=== PATIENT | female | born 1990 | race Caucasian/White ===

== ENCOUNTER 2022-04-09 09:18 | Outpatient (CLI) | payer OTHER, SELFPAY ==
--- NOTE | 2022-04-09 09:15 | CRLHL7_ITS ---
For Patients: As a result of the Century Cures Act, medical imaging exams and procedure reports are released immediately into your electronic medical record. You may view this report before your referring provider. If you have questions, please contact your health care provider. INDICATION: RIGHT CYST FELT ON PELVIC EXAM COMPARISON: 08/16/2015 TECHNIQUE: 2D martin scale and color Doppler images were acquired of the pelvis using a transabdominal and transvaginal approach. FINDINGS: Sonographic images demonstrate a normal size and smooth outer contour of the uterus. Uterus measures 7.8 cm in length by 4.3 cm in AP diameter by 5.6 cm in transverse dimension. The myometrium has a normal uniform echotexture. Intrauterine device is located in good position within the endometrial canal. The right ovary measures 3.3 x 1.8 x 2 point cm in size and the left ovary measures 2.8 x 1.1.4 cm. The ovaries demonstrate normal arterial and venous blood flow on color Doppler analysis. There is a circumscribed ovoid area near isoechoic echotexture within the right adnexa measuring 1.6 x 0.9 x 1.2 cm. Incidental small left ovarian cyst is present. IMPRESSION: There is an indeterminate hypoechoic structure adjacent to the right ovary measuring 1.6 x 0.9 x 1.2 cm which may represent a hemorrhagic paraovarian cyst or could represent blood products within a distended right fallopian tube. Recommendations could include pelvic MRI or follow-up ultrasound in 8-10 weeks. Dictated by Eleazar Cardenas MD @ 04/09/2022 11:57:24 AM (Electronically Signed)
== END 2022-04-09 09:19 | disposition home or self-care (01) ==
LOC: US 09:18
PROVIDERS: PCP Family Medicine; Visit Provider Obstetrics & Gynecology
DX: N83.201 Unspecified ovarian cyst, right side (principal)
CPT/HCPCS: 76830; 76856

== ENCOUNTER 2022-06-05 10:22 | Outpatient (CLI) | payer OTHER, SELFPAY ==
--- NOTE | 2022-06-05 10:15 | CRLHL7_ITS ---
For Patients: As a result of the Century Cures Act, medical imaging exams and procedure reports are released immediately into your electronic medical record. You may view this report before your referring provider. If you have questions, please contact your health care provider. INDICATION: Intermittent pelvic pain. Follow-up a right adnexal hypoechoic structure described on a prior ultrasound April 09, 2022. TECHNIQUE: Transabdominal pelvic ultrasound. COMPARISON: April 09, 2022. FINDINGS: Normal uterus with an intrauterine device appropriately positioned. The uterus measures 6.8 x 3.8 x 4.7 cm. The endometrial stripe measures 3 mm. Minimal free fluid in the cul-de-sac likely physiologic. Normal-sized ovaries with the right measuring 3.5 x 3.4 x 2.4 cm and the left measuring 2.7 x 1.7 x 1.7 cm. Simple right ovarian cyst measuring 3.3 x 2.0 x 2.3 cm. There is an adjacent much smaller daughter cyst. Blood flow is documented in the right ovary both arterial and venous. No torsion. Blood flow is documented in the left ovary both arterial and venous. No torsion. No hypoechoic adnexal lesion on the right which was described previously. IMPRESSION: 1. Normal-appearing uterus. Normal intrauterine device. Normal left ovary. No torsion or mass. 2. Normal sized right ovary. Right ovarian cyst measuring up to 3.3 cm with an adjacent much smaller daughter cyst. No right ovarian torsion. 3. A previously suggested hypoechoic structure in the right adnexa April 09, 2022 is not evident today. Dictated by Melecio Faulkner MD @ 06/05/2022 11:47:28 AM (Electronically Signed)
== END 2022-06-05 10:23 | disposition home or self-care (01) ==
LOC: US 10:23
PROVIDERS: PCP Family Medicine; Visit Provider Obstetrics & Gynecology
DX: R10.2 Pelvic and perineal pain (principal)
CPT/HCPCS: 76830; 93976

== ENCOUNTER 2022-12-21 13:48 | Outpatient (CLI) | payer OTHER, SELFPAY ==
--- NOTE | 2022-12-21 14:00 | CRLHL7_ITS ---
For Patients: As a result of the Century Cures Act, medical imaging exams and procedure reports are released immediately into your electronic medical record. You may view this report before your referring provider. If you have questions, please contact your health care provider. Indication: Pain Technique: Noncontrast CT abdomen and pelvis Please note that all CT scans at this facility use dose modulation, iterative reconstruction, and/or weight-based dosing when appropriate to reduce radiation dose to as low as reasonably achievable. Comparison: Ultrasound 06/05/2022 Findings: Calcified lymph node is present adjacent to the distal esophagus. There is a calcified granuloma within the left lower lobe. Lung bases are otherwise clear. A simple cyst is present within the right hepatic lobe measuring 1.4 cm. An additional simple cyst is present within the left hepatic lobe and measures 1.2 cm. The spleen is within normal limits. The adrenal glands are normal. Normal kidneys. No hydronephrosis or stone. Pancreas normal. Gallbladder incompletely distended. No calcified gallstones. Bladder normal. Intrauterine device is located within the uterus. Mild physiologic pelvic free fluid. No adnexal mass. Increased stool within the colon. No small bowel obstruction. The appendix is within normal limits. No adenopathy. No fracture. Impression: Increased stool within the colon consistent with constipation. No mechanical bowel obstruction or inflammatory change. Normal appendix. Trace physiologic free fluid. IUD within the uterus. Incidental simple cysts within the liver. Sequela of granulomatous change within the lung bases. Please note that all CT scans at this facility use dose modulation, iterative reconstruction, and/or weight-based dosing when appropriate to reduce radiation dose to as low as reasonably achievable. Dictated by Eleazar Cardenas MD @ 12/22/2022 9:33:21 AM (Electronically Signed)
== END 2022-12-21 13:49 | disposition home or self-care (01) ==
LOC: CT 13:49
PROVIDERS: PCP Family Medicine; Visit Provider Obstetrics & Gynecology
DX: R10.9 Unspecified abdominal pain (principal); K76.89 Other specified diseases of liver
CPT/HCPCS: 74176

== ENCOUNTER 2022-12-30 16:45 | Outpatient (CLI) | payer OTHER, SELFPAY | END 2022-12-30 16:46 | disposition home or self-care (01) | PROVIDERS: PCP Internal Medicine; Visit Provider Internal Medicine | DX: R10.9 Unspecified abdominal pain (principal) | CPT/HCPCS: 80053; 84443 ==

== ENCOUNTER 2023-11-23 21:35 | Emergency (ER) | payer OTHER, SELFPAY ==
[2023-11-23 21:39] VITALS: BP 112/69; PULSE 61; RESP 16; TEMP 36.9; O2SAT 100; BMI 20.6
--- NOTE | 2023-11-23 21:53 | ED.ABDPAIN ---
HPI - Abdominal Pain General Date Seen: 11/23/23 Chief Complaint: Abdominal Pain Stated Complaint: abdominal pain Time Seen by Provider: 11/23/23 21:44 Source: patient Mode of arrival: ambulatory Limitations: no limitations History of Present Illness HPI narrative: Patient is a 33-year-old female presenting to emergency department for abdominal pain. Abdominal pain started today around noon and has been getting worse. States the pain is a burning sensation that intermittently have a sharp stabbing pain. Pain she states is a 7/10 at this time. Thinks the pain started more in her central abdomen has moved to her bilateral lower abdomen. Denies fevers, chills, weakness, numbness, headache, vision changes, chest pain, shortness of breath, diarrhea, constipation, melena, hematochezia, dysuria, vaginal discharge, vaginal bleeding. Denies having pain like this before. She notes that she started an antibiotic last night for a double ear infection and is currently on amoxicillin. She started the dose last night and had another dose this afternoon and that is when the pain started. This evening she had another does in that acutely made the pain worse causing a come to the emergency department. She stated she had a normal bowel movement this morning. Also states she was able to have a fish filet at about 18:00 but not eat more because she was not having much of an appetite. Has not had any nausea or vomiting. No previous abdominal surgeries. Has had a previous D&C for miscarriage. Related Data Home Medications ?Medication ?Instructions ?Recorded ?Confirmed levonorgestrel 21 mcg/24 hr (up to 1 device intrauterine ONCE 12/07/22 11/22/23 8 years) 52 mg intrauterine device (Mirena) Previous Rx's ?Medication ?Instructions ?Recorded polyethylene glycol 3350 17 4 g PO QDAY Constipation #238 grams 03/23/23 gram/dose oral powder (Miralax) amoxicillin 875 mg tablet 875 mg PO BID 10 days #20 tabs 11/22/23 Allergies Allergy/AdvReac Type Severity Reaction Status Date / Time No Known Drug Allergies Allergy Verified 11/22/23 08:30 Review of Systems Status of ROS Reports: 10 or more systems reviewed and unremarkable except as noted in History and below [facility] Medical History Acute bilateral otitis media ?H66.93 - Otitis media, unspecified, bilateral (ICD-10) Ovarian cyst ?N83.209 - Unspecified ovarian cyst, unspecified side (ICD-10) Constipation ?K59.00 - Constipation, unspecified (ICD-10) Normal spontaneous vaginal delivery ?O80 - Encounter for full-term uncomplicated delivery (ICD-10) Surgical History H/O dilation and curettage ?Z98.890 - Other specified postprocedural states (ICD-10) Family History Other Bleeding disorder Breast cancer Colon cancer High blood pressure Stroke Social History What is your current living situation?: I presently have a place to live Problems where you live: no known problems In the past 12 months, utilities in danger of being shut off: no In past 12 months, lack of transportation kept you from medical appts, meetings, work, or getting things needed for daily living: no In the past 12 mos, have been you worried that your food would run out before you had money to buy more?: never true In the past 12 mos, the food you bought just didn't last and you didn't have money to buy more?: never true Smoking Status: Never smoker How often does anyone, including family, friends and others, physically hurt you: never How often does anyone, including family, friends and others, insult or talk down to you: never How often does anyone, including family, friends and others, threaten you with harm: never How often does anyone, including family, friends and others, scream or curse at you: never Little interest or pleasure in doing things: not at all Feeling down, depressed, or hopeless: not at all Exam Narrative: Exam Narrative: Const: Well-nourished, Well-developed, in moderate distress Eyes: PERRL, no conjunctival injection, and symmetrical lids HENT: Atraumatic external nose and ears. Moist mucous membranes. Neck: Symmetric, trachea midline, No thyromegaly. CVS: RRR, No murmurs or gallops. Peripheral pulses 2+ and equal in all extremities RESP: Unlabored respiratory effort. Clear to auscultation bilaterally. GI: Notable lower abdominal tenderness bilaterally with some mild tenderness in the upper quadrant, Nondistended, No rebound or guarding. MSK:Extremities w/o deformity, Normal Active ROM Skin: Warm, Dry. No rashes or lesions. Neuro: Normal Muscle tone, No focal neurological deficits. Psych: Awake, Alert, & Oriented x3. Appropriate mood and affect. Const: Vital Signs, click to edit/add: Vital Signs - 24 hr 11/23/23 21:39 Temperature 98.4 F Pulse Rate [Left P ulse Oximeter] 61 Respiratory Rate 16 Blood Pressure [Ri ght Upper Arm] 112/69 Pulse Oximetry 100 Oxygen Delivery Me thod Room Air Course Vital Signs Vital signs: Initial Vital Signs Temperature 98.4 F 11/23/23 21:39 Temperature Source Temporal Artery Scan 11/23/23 21:39 Pulse Rate 61 11/23/23 21:39 Pulse Rhythm Regular 11/23/23 21:39 Respiratory Rate 16 11/23/23 21:39 Blood Pressure 112/69 11/23/23 21:39 Blood Pressure Mean 83 11/23/23 21:39 Blood Pressure Position Sitting 11/23/23 21:39 Pulse Oximetry 100 11/23/23 21:39 Oxygen Delivery Method Room Air 11/23/23 21:39 Vital Signs Temperature 98.4 F 11/23/23 21:39 Pulse Rate 61 11/23/23 21:39 Respiratory Rate 16 11/23/23 21:39 Blood Pressure 112/69 11/23/23 21:39 Pulse Oximetry 100 11/23/23 21:39 Oxygen Delivery Method Room Air 11/23/23 21:39 Temperature 98.4 F 11/23/23 21:39 Pulse Rate 61 11/23/23 21:39 Respiratory Rate 16 11/23/23 21:39 Blood Pressure 112/69 11/23/23 21:39 Pulse Oximetry 100 11/23/23 21:39 Oxygen Delivery Method Room Air 11/23/23 21:39 Medications Administered Medications: Discontinued Medications Generic Name Dose Route Start Last Admin Trade Name Freq PRN Reason Stop Dose Admin Lactated Ringer's 1,000 mls @ 1,000 mls/hr 11/23/23 21:52 11/23/23 23:17 Lactated Ringers 1000 Ml IV 11/23/23 22:51 Infused .Q1H ONE Infusion Ketorolac Tromethamine 15 mg 11/23/23 21:52 11/23/23 23:23 Ketorolac 15 Mg/Ml Inj IVP 11/23/23 21:53 15 mg ONCE ONE Administration MDM - Abdominal Pain MDM Narrative Medical decision making narrative: Patient is a 33-year-old female presenting to the emergency department for abdominal pain. Considering the location of the pain I have some concern for appendicitis. With her age less likely be diverticulitis. With no previous abdominal surgeries in [facility] seems very unlikely. Will also do lipase to check for pancreatitis. test ordered a CT scan the abdomen pelvis will be done. Toradol given for pain. CBC returned showing no concerning abnormalities. CMP and lipase showed no concerning abnormalities. Urine appears normal. test is negative. Pain is starting to improve at this time. She states she is comfortable. A my review of the CT scan she appears very constipated. When I asked her about this she states she has been having issues constipation and has seen a primary care provider in the past about it and has been taking daily stool softeners with some improvement over the past several months. CT scan reviewed by myself and the radiologist shows a large colonic stool burden. This could be the cause of her pain. I spoke to her about this and did give her a bowel cleanout regimen to see if that will help. She is agreeable to this plan. No other acute abnormalities seen. Will be discharged at this time with a Toradol prescription to instymeds Lab Data Labs: Lab Results 11/23/23 11/23/23 Range/Units 22:05 23:05 WBC 10.92 (4.50-11.00) K/uL RBC 4.31 (4.00-5.20) m/uL Hgb 13.2 (12.0-16.0) gm/dL Hct 40.0 (33.0-51.0) % MCV 93 (80-100) fL MCH 31 (26-34) pg MCHC 33 (32-36) gm/dL RDW Coeff of Lita 12.4 (11.5-15.5) % Plt Count 160 (140-440) K/uL Neut % (Auto) 75.8 H (42.0-72.0) % Lymph % (Auto) 16.7 L (20-44) % Overton % (Auto) 5.5 (0.0-11.0) % Eos % (Auto) 1.7 (0.0-7.0) % Baso % (Auto) 0.2 (0.0-3.0) % Neut # (Auto) 8.30 H (1.7-7.0) K/uL Lymph # (Auto) 1.80 (0.90-2.90) K/uL Overton # (Auto) 0.60 (0.00-0.90) K/UL Eos # (Auto) 0.19 (0.00-0.50) K/uL Baso # (Auto) 0.02 (0.00-0.30) K/uL Abs Immat Gran (auto) 0.01 (0.00-0.30) K/uL Imm/Tot Granulo (auto) 0.1 % Sodium 136 (135-149) mmol/L Potassium 3.9 (3.6-5.1) mmol/L Chloride 105 (96-114) mmol/L Carbon Dioxide 27 (20-32) mmol/L Anion Gap 4 L (7-15) mEq/L BUN 19 (5-24) mg/dL Creatinine 0.9 (0.5-1.5) mg/dL Estimated Creat Clear 74.97 Estimated GFR 86 ml/min Glucose 101 (60-115) mg/dL Calcium 9.0 (8.4-10.6) mg/dL Total Bilirubin 0.4 (0.1-1.5) mg/dL AST 23 (12-35) U/L ALT 16 (4-35) U/L Alkaline Phosphatase 58 (40-150) U/L Total Protein 7.0 (6.0-8.3) g/dL Albumin 4.5 (3.3-5.0) g/dL Lipase 109 (23-300) U/L HCG, Qual Negative (Negative) Urine Color Dark yellow (Yellow) Urine Appearance Clear (Clear) Urine pH 7.5 (5.0-8.5) Ur Specific Lynn 1.020 (1.000-1.030) Urine Protein Negative (Negative) Urine Glucose (UA) Negative (Negative) Urine Ketones 1+ A (Negative) Urine Blood Negative (Negative) Urine Nitrite Negative (Negative) Urine Bilirubin Negative (Negative) Urine Urobilinogen 0.2 (0.2-1.0) Ur Leukocyte Esterase Negative (Negative) Urine RBC 0-2 (0-2) Urine WBC 0-2 (0-5) Ur Squamous Epith Cells Moderate A (None-Few) Urine Bacteria None (None) Urine HCG, Qual Cancelled Imaging Data CT scan abdomen and pelvis: Attestation: I have reviewed the pertinent imaging results. Radiologist's impression: 1. No acute findings within the abdomen and pelvis. 2. Large colonic stool burden. Recommend correlation for constipation. 3. IUD in the uterus. Please note that all CT scans at this facility use dose modulation, iterative reconstruction, and/or weight-based dosing when appropriate to reduce radiation dose to as low as reasonably achievable. Dictated by Alon Sargent MD @ 11/24/2023 1:02:06 AM Discharge Plan Discharge Clinical Impression: Abdominal pain Qualifiers: Abdominal location: lower abdomen, unspecified Qualified Code(s): R10.30 - Lower abdominal pain, unspecified Constipation Qualifiers: Constipation type: unspecified constipation type Qualified Code(s): K59.00 - Constipation, unspecified Patient Disposition: Home, Self-Care Condition: Improved Instructions: Abdominal Pain (ED) Additional Instructions: Follow these instructions to help with your constipation. ?2 - Bisacodyl tablets (Dulcolax? laxative NOT Dulcolax? stool softener) each tablet contains 5 mg of bisacodyl ?1 - 8.3 ounce bottle of Polyethylene Glycol (PEG) 3350 Powder (MiraLAX, SmoothLAX, ClearLAX or generic equivalent) 64 oz. Gatorade? (No red colored flavors) Regular Gatorade?, Gatorade G2?, Powerade?, Powerade Zero?, Pedialyte or Propel?, Liquid IV, and other electrolyte beverages are acceptable. Red flavors are not allowed; all other colors (yellow, green, orange, purple, blue) are okay. It is also okay to buy two 2.12 oz packets of powdered Gatorade that can be mixed with water to a total volume of 64 oz of liquid. ?1 - 10 oz. bottle Magnesium Citrate (No red colored flavors) It is also okay for you to use a 0.5 ounce package of powdered magnesium citrate (17 grams) mixed with 10 ounces of water. ?Tomorrow begin Clear Liquid Diet (clear liquids include things you can see through). Examples of a clear liquid diet include: water, clear broth or bouillon (gluten free options available), Gatorade, Pedialyte or Powerade, carbonated and non-carbonated soft drinks (Sprite, 7-Up, Gingerale), strained fruit juices without pulp (apple, white grape, white cranberry), Jell-O, popsicles, and up to one cup of black coffee or tea (no milk or cream) each day. The following are not allowed on a clear liquid diet: red liquids, alcoholic beverages, dairy products, protein shakes, cream broths, juice with pulp, products containing oil and chewing tobacco. For additional details on following a clear liquid diet, please see [email or web address] ?Take 2 Bisacodyl (Dulcolax) tablets ?4-6 hour later Drink Miralax ? Gatorade preparation Mix 1 bottle of Miralax with 64 oz. of Gatorade in a large pitcher. Drink 1 - 8 oz. glass of the Miralax/Gatorade solution. Continue drinking 1 - 8 oz. glass every 15 minutes thereafter until the mixture is gone Prescriptions: No Action polyethylene glycol 3350 [Miralax] 17 gram/dose powder 4 g PO QDAY Qty: 238 3RF amoxicillin 875 mg tablet 875 mg PO BID 10 Days Qty: 20 0RF Mirena 21 mcg/24 hours (8 yrs) 52 mg intrauterine device 1 device intrauterine ONCE Rx Instructions: as a single dose Follow Up/Referrals: Evans Malik MD [Primary Care Provider] - [facility]
--- OUTSIDE RECORDS SUMMARY | 2023-11-23 21:59 | XMS_ITS | Clinical Summary ---
Author Organization [facility] Address [address] [place] [id number] Phone [email or web address] Care Team Providers Care Dining Room Coordinator Name Role Phone None, At This Time Primary Care Provider Unavail able Allergies No known active allergies Medications No known medications Active Problems No known active problems Encounters Date Type Department Care Team Description 11/05/2023 1:00 PM CDT Treatment [employer] [facility] [address] [place] [id number] Grayson Moore DC Lumbar back pain (Primary Dx); Lumbar region somatic dysfunction; Sacral region somatic dysfunction; Thoracic segment dysfunction; Cervical somatic dysfunction from Last 3 Months Family History Medical History Relation Name Comments Stroke Mother Valeria Boyer Relation Name Status Comments Mother Valeria Boyer Social History Tobacco Use Types Packs/Day Years Used Date Smoking Tobacco: Never Smokeless Tobacco: Never Tobacco Cessation:Counseling Given: Not Answered Alcohol Use Standard Drinks/Week Comments Not Currently 1 (1 standard drink = 0.6 oz pur e alcohol) Alcohol Use Answer Date Recorded Alcohol Use Status Not Currently 11/05/2023 Sex and Gender Information Value Date Recorded Sex Assigned at Not on file Gender Identity Not on file Sexual Orientation Not on file Last Filed Vital Signs Vital Sign Reading Time Taken Comments Blood Pressure 99/62 10/28/2022 10:10 AM CDT Pulse 68 10/28/2022 10:10 AM CDT Temperature - - Respiratory Rate - - Oxygen Saturation 100% 10/28/2022 10:10 AM CDT Inhaled Oxygen Concentration - - Weight 54.4 kg (120 lb) 10/28/2022 10:10 AM CDT Height 162.6 cm (5' 4) 10/28/2022 10:10 AM CDT Body Mass Index 20.6 10/28/2022 10:10 AM CDT Plan of Treatment Health Maintenance Due Date Last Done Comments Dental Cleaning/Exam 1988 HIV Screening 1988 Hepatitis C Screening 1988 Cervical Cancer Screening 2004 Annual Preventive Exam 01/29/2006 Hep B Infection Screening - Surface Antigen 01/29/2006 Hepatitis B Immunization (1 of 3 - 19+ 3-dose series) 01/29/2007 Covid-19 Immunization ( season) 2023 06/30/2021, 09/26/2020, 08/29/2020 Influenza Immunization (#1) 2024 11/0 01/2022, 02/16/2020, 03/03/2019, Additional history exists Tetanus (Tdap or Td) Immunization 09/12/2029 09/13/2019, 10/02/2016, 10/22/2000 HIB Immunization Aged Out No longer e ligible based on patient's age to complete this topic HPV Immunization Aged Out No longer e ligible based on patient's age to complete this topic Hepatitis A Immunization Aged Out No longer eligible based on patient's age to complete this topic Pneumococcal: Ped (0 to 5 Yrs) and At-Risk Member (6 to 64 Yrs) Aged Out No longer eligible based on patient's age to complete this topic Polio Immunization Aged Out No longer eligible based on patient's age to complete this topic Varicella Immunization Aged Out No lo nger eligible based on patient's age to complete this topic Care Teams Dining Room Coordinator Relationship Specialty Start Date End Date None, [place] [address] PCP - General Family Medicine 11/05/23
--- OUTSIDE RECORDS SUMMARY | 2023-11-23 21:59 | XMS_ITS | Encounter Summary ---
Author Organization [facility] Address [address] [place] [phone] Phone [email or web address] Care Team Providers Care Party Plan Sales Host/Hostess Name Role Phone None, At This Time Primary Care Provider Unavail able Reason for Visit * Reason Comments Lumbosacral Impairment MSK Encounter Details Date Type Department Care Team (Late st Contact Info) Description 11/05/2023 1:00 PM CDT Treatment [facility] [facility] [address] [place] [phone] Grayson Moore [place] [address] [place] [address] Lumbar back pain (Primary Dx); Lumbar region somatic dysfunction; Sacral region somatic dysfunction; Thoracic segment dysfunction; Cervical somatic dysfunction Social History Tobacco Use Types Packs/Day Years Used Date Smoking Tobacco: Never Smokeless Tobacco: Never Alcohol Use Standard Drinks/Week Comments Not Currently 1 (1 standard drink = 0.6 oz pur e alcohol) Alcohol Use Answer Date Recorded Alcohol Use Status Not Currently 11/05/2023 Sex and Gender Information Value Date Recorded Sex Assigned at Not on file Gender Identity Not on file Sexual Orientation Not on file documented as of this encounter Progress Notes * Grayson Moore DC - 11/05/2023 1:00 PM CDT Chiropractic Follow Up Note Zaina Bloom is a 33 y.o. female presents today for chiropractic follow up. Today's Date: 11/05/2023 Chief Complaint: Chief Complaint Patient presents with Lumbosacral Impairment MSK New Injuries: none Pain level today: 07/17 HEP compliance: Patient has accessed HEP, but has been inconsistent in utilization. HPI: Patient presents with low back pain. She states that she did very well after her last visit here about a year ago and had no issues up until July, when she started feeling some tension and pain again in her left low back. She states that soon after the pain returned she got sick with a respiratoryillness, after which she started having pain in her right mid-back wrapping around the right side of her chest. She states that she saw a chiropractor in [place] (where she lives) about 12 times and the issue subsequently resolved. She states that her low back improved under managed care analyst atthat time as well, but has since returned. She denies any radiating symptoms in her extremities at this time, but states that in July she was having left leg pain similar to her previous visit here. Review of Systems: No changes since last exam Physical Exam: Objective Palpation Left Hypertonic in the iliopsoas, levator scapulae, piriformis, proximal semimembranosus, proximal semitendinosus, quadratus lumborum, rhomboids and scalenes. Muscle spasm in the gluteus medius, iliopsoas, piriformis, proximal semimembranosus, proximal semitendinosus and quadratus lumborum. Trigger point to gluteus medius, iliopsoas and TFL. Right Hypertonic in the iliopsoas, levator scapulae, piriformis, proximal semimembranosus, proximal semitendinosus, quadratus lumborum, rhomboids and scalenes. Muscle spasm in the levator scapulae and rhomboids. Segmental and somatic function findings: Decreased fluid motion with pain to palpation noted at the following specific joint regions during motion palpation: Left SI, L4-5, L1-2, T7-9, T4-5, T1-2, C5-6, C1-2 Assessment: Diagnoses and all orders for this visit: Lumbar back pain Lumbar region somatic dysfunction Sacral region somatic dysfunction Thoracic segment dysfunction Cervical somatic dysfunction Specific chiropractic segmental dysfunction listings: P-L, L5 PL, L2 NJ, T8 NJ, T5 PL, T2 NJ, C6 PRS, C1 LP Treatment plan/technique notes: Manual CMT Today's treatment: CMT to increase global ROM, reduce joint tenderness and restore functional mobility. Percussion massage: 5 minutes, applied to hypertonic muscles listed in objective section. IASTM: none today Cupping: none today Manual muscle therapy addressing the fibrotic soft tissue adhesions and hypertonicity Post treatment comments: Patient reported improved mobility and a reduction in symptoms. Recommendations made: Stay active with home exercise program. [employer] [facility] access code: [email or web address] Patient to return: PRN - maintenance Grayson Moore DC documented in this encounter Plan of Treatment Not on file documented as of this encounter Visit Diagnoses Diagnosis Lumbar back pain- Primary Lumbago Lumbar region somatic dysfunction Nonallopathic lesion of lumbar region, not elsewhere classified Sacral region somatic dysfunction Nonallopathic lesion of sacral region, not elsewhere classified Thoracic segment dysfunction Nonallopathic lesion of thoracic region, not elsewhere classified Cervical somatic dysfunction documented in this encounter Care Teams Party Plan Sales Host/Hostess Relationship Specialty Start Date End Date None, [place] [address] PCP - General Family Medicine 11/05/23 documented as of this encounter
[2023-11-23] MEDS: LACTATED RINGERS 1000 ML 1,000 ML IV (22:08)
[2023-11-23 22:14] LABS: Basophils Absolute Auto 0.02 K/uL (0.00-0.30); Basophils Percent Auto 0.2 % (0.0-3.0); Eosinophils Absolute Auto 0.19 K/uL (0.00-0.50); Eosinophils Percent Auto 1.7 % (0.0-7.0); Hemoglobin* 13.2 gm/dL (12.0-16.0); Immature Granulocytes Abs Auto 0.01 K/uL (0.00-0.30); Immature Granulocytes Pct Auto 0.1 %; Lymphocytes Percent Auto 16.7 % (20-44); Mean Corpuscular HGB Conc 33 gm/dL (32-36); Mean Corpuscular Hemoglobin 31 pg (26-34); Mean Corpuscular Volume 93 fL (80-100); Monocytes Percent Auto 5.5 % (0.0-11.0); Neutrophils Percent Auto 75.8 % (42.0-72.0); Platelet Count* 160 K/uL (140-440); RDW Coefficient of Variation % 12.4 % (11.5-15.5); Red Blood Count 4.31 m/uL (4.00-5.20); White Blood Count* 10.92 K/uL (4.50-11.00)
[2023-11-23 22:26] LABS: Chloride* 105 mmol/L (96-114)
[2023-11-23 22:27] LABS: Albumin* 4.5 g/dL (3.3-5.0); Sodium* 136 mmol/L (135-149)
[2023-11-23 22:28] LABS: Potassium* 3.9 mmol/L (3.6-5.1)
[2023-11-23 22:30] LABS: Alanine Aminotransferase* 16 U/L (4-35); Alkaline Phosphatase* 58 U/L (40-150); Anion Gap 4 mEq/L (7-15); Aspartate Amino Transferase* 23 U/L (12-35); Bilirubin Total* 0.4 mg/dL (0.1-1.5); Blood Urea Nitrogen* 19 mg/dL (5-24); Carbon Dioxide* 27 mmol/L (20-32); Creatinine* 0.9 mg/dL (0.5-1.5); Est. Creatinine Clearance* 74.97; Estimated Glomerular Filt Rate 86 ml/min; Glucose* 101 mg/dL (60-115); Lipase* 109 U/L (23-300)
--- NOTE | 2023-11-23 22:32 | CRLHL7_ITS ---
For Patients: As a result of the Century Cures Act, medical imaging exams and procedure reports are released immediately into your electronic medical record. You may view this report before your referring provider. If you have questions, please contact your health care provider. INDICATION: Lower abdominal pain. TECHNIQUE: CT abdomen and pelvis acquired with 58 cc of Isovue 370 IV contrast. COMPARISON: None. FINDINGS: Lower chest: Small calcified right distal paraesophageal lymph node. Liver: 1.6 cm simple right hepatic cyst. Normal in size and contour. No suspicious masses. Gallbladder and bile ducts: Unremarkable. No stones or inflammation. No biliary dilatation. Pancreas: Unremarkable. No mass or inflammation. Spleen: Unremarkable. Normal in size. No masses. Adrenal glands: Unremarkable. No nodules. Kidneys: Unremarkable. No suspicious masses, stones, or hydronephrosis. GI tract: Large colonic stool burden. No bowel obstruction. The structure favored to represent the appendix is normal. Vasculature: Abdominal aorta is normal in caliber. Mesenteric arteries are patent. Lymph nodes: No lymphadenopathy. Peritoneum/Abdominal Wall: Small volume simple, likely physiologic, free fluid in the pelvic cul-de-sac. Pelvis: IUD in the uterus. Bones: Unremarkable for age. IMPRESSION: 1. No acute findings within the abdomen and pelvis. 2. Large colonic stool burden. Recommend correlation for constipation. 3. IUD in the uterus. Please note that all CT scans at this facility use dose modulation, iterative reconstruction, and/or weight-based dosing when appropriate to reduce radiation dose to as low as reasonably achievable. Dictated by Alon Sargent MD @ 11/24/2023 1:02:06 AM (Electronically Signed)
[2023-11-23 23:08] LABS: Slide Review Reflex No
[2023-11-23 23:15] LABS: HCG Qualitative Serum* Negative (Negative)
[2023-11-23 23:23] LABS: Appearance Urine Clear (Clear); Bilirubin Urine Negative (Negative); Blood Urine Negative (Negative); Color Urine Dark yellow (Yellow); Glucose Urine Negative (Negative); Ketones Urine 1+ (Negative); Leukocyte Esterase Urine Negative (Negative); Nitrite Urine Negative (Negative); Protein Urine Negative (Negative); Urobilinogen Urine 0.2 (0.2-1.0); pH Urine 7.5 (5.0-8.5)
[2023-11-23] MEDS: KETOROLAC 15 MG/ML inj IVP (23:23)
[2023-11-23 23:38] LABS: RBC Urine 0-2 (0-2); Squamous Epithelial Cell Urine Moderate (None-Few); WBC Urine 0-2 (0-5)
== END 2023-11-24 01:16 | disposition home or self-care (01) ==
PROVIDERS: Emergency Provider Student in an Organized Health Care Education/Training Program; PCP Internal Medicine
DX: R10.30 Lower abdominal pain, unspecified (principal); K59.00 Constipation, unspecified
CPT/HCPCS: 36415; 74177; 80053; 81001; 81025; 83690; 84703; 85025; 96374; 99283; 99284; J1885; J7120; Q9967

== ENCOUNTER 2024-03-02 11:57 | Outpatient (CLI) | payer OTHER, SELFPAY ==
--- OUTSIDE RECORDS SUMMARY | 2024-03-02 11:59 | XMS_ITS | Encounter Summary ---
Author Organization [facility] Address [address] [place] [address] Phone [email or web address] [email or web address] Care Team Providers Care Financial Reporting Analyst Name Role Phone None, At This Time Primary Care Provider Unavail able Encounter Details Date Type Department Care Team (Late st Contact Info) Description 02/17/2024 Claims Summary [facility] [address] [place] [address] Provider, Claims Summary External, [address] [place] [phone] Social History Tobacco Use Types Packs/Day Years [...] on file documented as of this encounter Plan of Treatment Not on file documented as of this encounter Visit Diagnoses Not on filedocumented in this encounter Care Teams Financial Reporting Analyst Relationship Specialty Start Date End Date None, [place] [address] PCP - General Family Medicine 11/05/23 documented as of this encounter
--- OUTSIDE RECORDS SUMMARY | 2024-03-02 11:59 | XMS_ITS | Encounter Summary ---
Author Organization [facility] Address [address] [place] [address] Phone [email or web address] [email or web address] Care Team Providers Care Knitting Machine Fixer Head Name Role Phone None, At This Time Primary Care Provider Unavail able Encounter Details Date Type Department Care Team (Late st Contact Info) Description 01/19/2024 Claims Summary [facility] [address] [place] [address] Provider, Claims Summary External, [address] [place] [phone] Social History Tobacco Use Types Packs/Day Years [...] on filedocumented in this encounter Care Teams Knitting Machine Fixer Head Relationship Specialty Start Date End Date None, [place] [address] PCP - General Family Medicine 11/05/23 documented as of this encounter
--- OUTSIDE RECORDS SUMMARY | 2024-03-02 11:59 | XMS_ITS | Clinical Summary ---
Author Organization [facility] Address [address] [place] [phone] Phone CareLaurus [email or web address] [email or web address] Care Team Providers Care Steep Tender Name Role Phone None, At This Time Primary Care Provider Unavail able Allergies No known active allergies Medications No known medications Active Problems No known active problems Encounters Date Type Department Care Team Description 02/17/2024 Claims Summary [facility] [address] [place] [phone] Provider, Claims Summary MD Srinivas 01/19/2024 Claims Summary [facility] [address] [place] [phone] Provider, Claims Summary MD Srinivas 12/08/2023 Claims Summary [facility] [address] [place] [address] Provider, Claims Summary MD Srinivas from Last 3 Months Family History Medical [...] 3-dose series) 01/29/2007 Covid-19 Immunization ( season) 2024 06/30/2021, 09/26/2020, 08/29/2020 Influenza Immunization (#1) 2024 [...] age to complete this topic Care Teams Steep Tender Relationship Specialty Start Date End Date None, [place] [address] PCP - General Family Medicine 11/05/23
[2024-03-02 23:25] LABS: Chlamydia DNA Amplified* NOT DETECTED (No Detected); GC DNA Amplified* NOT DETECTED (No Detected)
[2024-03-02 23:52] LABS: Bacterial Vaginosis* Negative (Negative); Candida glab/krus NOT DETECTED (No Detected); Candida species NOT DETECTED (No Detected); Trichomonas vaginalis NOT DETECTED (No Detected)
== END 2024-03-02 11:58 | disposition home or self-care (01) ==
PROVIDERS: PCP Internal Medicine; Visit Provider Registered Nurse
DX: N93.9 Abnormal uterine and vaginal bleeding, unspecified (principal); R10.2 Pelvic and perineal pain
CPT/HCPCS: 81513; 87481; 87491; 87591; 87661

== ENCOUNTER 2024-03-21 10:30 | Outpatient (CLI) | payer OTHER, SELFPAY ==
--- OUTSIDE RECORDS SUMMARY | 2024-03-21 10:32 | XMS_ITS | Encounter Summary ---
Author Organization [facility] Address [address] [place] [address] Phone [email or web address] [email or web address] Care Team Providers Care Conference Service Coordinator Name Role Phone None, At This Time Primary Care Provider Unavail able Encounter Details Date Type Department Care Team (Late st Contact Info) Description 12/08/2023 Claims Summary [facility] [address] [place] [address] Provider, Claims Summary External, [address] [place] [phone] Social History Tobacco Use Types Packs/Day Years Used Date Smoking Tobacco: Never Smokeless Tobacco: Never Alcohol Use Standard Drinks/Week Comments Not Currently 1 (1 standard drink = 0.6 oz pur e alcohol) Alcohol Use Answer Date Recorded Alcohol Use Status Not Currently 11/05/2023 Comments Unknown Sex and Gender Information Value Date Recorded Sex Assigned at Not on file 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
--- OUTSIDE RECORDS SUMMARY | 2024-03-21 10:32 | XMS_ITS | Clinical Summary ---
Author Organization [facility] Address [address] [place] [phone] Phone [email or web address] [email or web address] Care Team Providers Care Business Process Architect Name Role Phone None, At This Time Primary Care Provider Unavail able Allergies No known active allergies Medications No known medications Active Problems No known active problems Encounters Date Type Department Care Team Description 02/17/2024 Claims Summary [facility] [address] [place] [address] Provider, Claims Summary MD Srinivas 01/19/2024 Claims Summary [facility] [address] [place] [address] Provider, Claims Summary MD Srinivas from Last [...] Recorded Alcohol Use Status Not Currently 11/05/2023 Stress Answer Date Recorded Stress in your Life Not on file 03/15/2024 Dealing with Stress 3 03/15/2024 Comments Unknown Sex and Gender Information Value Date Recorded Sex Assigned at Not on file Legal Sex Female 12:50 PM CHEMIST INTERN Gender Identity Not on file Sexual Orientation [...] - 19+ 3-dose series) 01/29/2007 Covid-19 Immunization () 01/09/2024 06/30/2021, 09/26/2020, 08/29/2020 Influenza Immunization (#1) 2024 [...] on patient's age to complete this topic Insurance [employer] NO COPAY NB Care Teams Business Process Architect Relationship Specialty Start Date End Date None, [place] [address] PCP - General Family Medicine 11/05/23
--- OUTSIDE RECORDS SUMMARY | 2024-03-21 10:32 | XMS_ITS | Encounter Summary ---
Author Organization [facility] Address [address] [place] [address] Phone [email or web address] [email or web address] Care Team Providers Care Park Ranger Name Role Phone None, At This Time Primary Care Provider Unavail able Encounter Details Date Type Department Care Team (Late st Contact Info) Description 01/19/2024 Claims Summary [facility] [address] [place] [address] Provider, Claims Summary External, [address] [place] [address] Social History Tobacco Use Types Packs/Day Years Used Date Smoking Tobacco: Never Smokeless Tobacco: Never Alcohol Use Standard Drinks/Week Comments Not Currently 1 (1 standard drink = 0.6 oz pur e alcohol) Alcohol Use Answer Date Recorded Alcohol Use Status Not Currently 11/05/2023 Comments Unknown Sex and Gender Information Value Date Recorded Sex Assigned at Not on file 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
--- OUTSIDE RECORDS SUMMARY | 2024-03-21 10:32 | XMS_ITS | Encounter Summary ---
Author Organization [facility] Address [address] [place] [address] Phone [email or web address] [email or web address] Care Team Providers Care Contract Associate Manager Name Role Phone None, At This Time Primary Care Provider Unavail able Encounter Details Date Type Department Care Team (Late st Contact Info) Description 02/17/2024 Claims Summary [facility] [address] [place] [address] Provider, Claims Summary External, [address] [place], [place] [phone] Social History Tobacco Use Types Packs/Day Years Used Date Smoking Tobacco: Never Smokeless Tobacco: Never Alcohol Use Standard Drinks/Week Comments Not Currently 1 (1 standard drink = 0.6 oz pur e alcohol) Alcohol Use Answer Date Recorded Alcohol Use Status Not Currently 11/05/2023 Comments Unknown Sex and Gender Information Value Date Recorded Sex Assigned at Not on file Legal Sex Female 12:50 PM FIELD SERVICE ANALYST Gender Identity Not on file Sexual Orientation Not on file documented as of this encounter Plan of Treatment Not on file documented as of this encounter Visit Diagnoses Not on filedocumented in this encounter Care Teams Contract Associate Manager Relationship Specialty Start Date End Date None, [place] [address] PCP - General Family Medicine 11/05/23 documented as of this encounter
--- NOTE | 2024-03-21 10:45 | CRLHL7_ITS ---
For Patients: As a result of the Century Cures Act, medical imaging exams and procedure reports are released immediately into your electronic medical record. You may view this report before your referring provider. If you have questions, please contact your health care provider. INDICATION: Abnormal uterine bleeding TECHNIQUE: Transabdominal and transvaginal scanning was performed. Transvaginal scanning was performed to optimally evaluate the endometrium and adnexa. Ovarian blood flow was evaluated with color-flow and pulsed Doppler. COMPARISON: Pelvic ultrasound of 04/09/2022 FINDINGS: The uterus is mildly enlarged but normal in shape. The uterus measures 6.6 x 5.0 x 5.9 cm. No myometrial mass is evident. The endometrial stripe is normal in thickness at 3 mm. An IUD is present in the uterine cavity and appears to be properly positioned. The ovaries are normal in size and contain a number of follicles. The right ovary measures 2.9 x 2.1 x 1.9 cm and left 2.9 x 1.1 x 1.0 cm. Ovarian blood flow is demonstrated with color-flow and pulsed Doppler. No adnexal mass is evident. A small amount of physiologic free fluid is noted. IMPRESSION: 1. Mildly enlarged uterus with normal thickness endometrial stripe at 3 mm and properly positioned IUD. 2. Small amount of physiologic free fluid. Dictated by Jame Hernández MD @ 03/22/2024 9:05:00 AM (Electronically Signed)
== END 2024-03-21 10:31 | disposition home or self-care (01) ==
LOC: US 10:30
PROVIDERS: PCP Internal Medicine; Visit Provider Registered Nurse
DX: N93.9 Abnormal uterine and vaginal bleeding, unspecified (principal); N85.2 Hypertrophy of uterus; R10.2 Pelvic and perineal pain
CPT/HCPCS: 76830; 76856

== ENCOUNTER 2024-03-29 08:12 | Outpatient (CLI) | payer OTHER, SELFPAY ==
--- OUTSIDE RECORDS SUMMARY | 2024-04-01 12:10 | XMS_ITS | Encounter Summary ---
Author Organization [facility] Address [address] [place] [address] Phone [email or web address] [email or web address] Care Team Providers Care Stereo Plotter Operator Name Role Phone None, At This Time Primary Care Provider Unavail able Encounter Details Date Type Department Care Team (Late st Contact Info) Description 12/08/2023 Claims Summary [facility] [address] [place] [address] Provider, Claims Summary External, [address] [place] [phone] Social History Tobacco Use Types Packs/Day Years Used Date Smoking Tobacco: Never Smokeless Tobacco: Never Alcohol Use Standard Drinks/Week Comments Not Currently 1 (1 standard drink = 0.6 oz pur e alcohol) Alcohol Use Answer Date Recorded Alcohol Use Status Not Currently 11/05/2023 Comments Unknown Sex and Gender Information Value Date Recorded Sex Assigned at Not on file Legal Sex Female 12:50 PM PEDIATRIC LPN Gender Identity Not on file Sexual Orientation Not on file documented as of this encounter Plan of Treatment Not on file documented as of this encounter Visit Diagnoses Not on filedocumented in this encounter Care Teams Stereo Plotter Operator Relationship Specialty Start Date End Date None, [place] [address] PCP - General Family Medicine 11/05/23 documented as of this encounter
--- OUTSIDE RECORDS SUMMARY | 2024-04-01 12:10 | XMS_ITS | Encounter Summary ---
Author Organization [facility] Address [address] [place] [address] Care Team Providers Care Relations Specialist Name Role Phone Unavailable Primary Care Provider Unavailabl e Reason for Referral * Outpatient (Routine) - Authorized Specialty Diagnoses / Procedures Referred By Contac t Referred To Contact Diagnoses Constipation Procedures Enema Prep Juan Carlos Domingo M.B.B.S. [address] [place] [phone] Phone: tel: fax: [facility] Referral ID Status Reason Start Date Expiration Date V isits Requested Visits Authorized [id number] Authorized 02/21/2024 02/20/2025 1 1 * Outpatient (Routine) - Authorized Specialty Diagnoses / Procedures Referred By Contac t Referred To Contact Diagnoses Constipation Procedures DX Abdomen 1 View Juan Carlos Domingo M.B.B.S. [address] [place] [phone] Phone: tel: fax: [facility] Referral ID Status Reason Start Date Expiration Date V isits Requested Visits Authorized [id number] Authorized 02/21/2024 02/20/2025 1 1 * Outpatient (Routine) - Authorized Specialty Diagnoses / Procedures Referred By Contac t Referred To Contact Diagnoses Constipation Procedures Anorectal Manometry Juan Carlos Domingo M.B.B.S. [address] [place] [phone] Phone: tel: fax: [facility] Referral ID Status Reason Start Date Expiration Date V isits Requested Visits Authorized [id number] Authorized 02/21/2024 02/20/2025 1 1 * Outpatient (Routine) - Authorized Specialty Diagnoses / Procedures Referred By Contac t Referred To Contact Diagnoses Constipation Procedures NM Gastric Emptying with SB with Colonic Transit Time 48 hr Juan Carlos Domingo M.B.B.S. [address] [place] [phone] Phone: tel: fax: [facility] Referral ID Status Reason Start Date Expiration Date V isits Requested Visits Authorized [id number] Authorized 02/21/2024 02/20/2025 8 8 Encounter Details Date Type Department Care Team (Late Contact Info) Description 02/21/2024 Orders Only Division of Gastroenterology in [place], [place] [address] [place] [phone] [facility], MD Анна Constipation Social History Tobacco Use Types Packs/Day Years Used Date Smoking Tobacco: Never Assessed Dental Answer Date Recorded Dental: Regular Dentist Unknown 02/21/20 24 Comments Unknown Sex and Gender Information Value Date Recorded Sex Assigned at Female 03/29/2024 8:07 PM MANAGER PATHOLOGY Legal Sex Female 11:57 AM CDT Gender Identity Female 03/29/2024 8:07 PM MANAGER PATHOLOGY Sexual Orientation Straight 03/29/2024 8: 07 PM MANAGER PATHOLOGY documented as of this encounter Plan of Treatment Upcoming Encounters Date Type Department Care Team (Latest Contact Info) Description 04/03/2024 7:15 AM MANAGER PATHOLOGY Appointment Department of Radiology, [facility], in [place], [place] [address] [place] [phone] Juan Carlos Domingo M.B.B.S. [address] [place] [phone] 04/03/2024 8:00 AM MANAGER PATHOLOGY Comprehensive Visit Division of Gastroenterology in [place], [place] [address] [place] [address] Juan Carlos Domingo M.B.B.S. [address] [place] [phone] 04/03/2024 1:50 PM MANAGER PATHOLOGY Hospital Encounter Division of Gastroenterology in [place], [place] [address] [place] [address] Juan Carlos Domingo M.B.B.S. [address] [place] [phone] 04/04/2024 7:15 AM MANAGER PATHOLOGY Appointment Department of Radiology, [facility], in [place], [place] [address] [place] [address] Juan Carlos Domingo M.B.B.S. [address] [place] [phone] 04/05/2024 6:45 AM MANAGER PATHOLOGY Appointment Department of Radiology, [facility], in [place], [place] [address] [place] [phone] Juan Carlos Domingo M.B.B.S. [address] [place] [phone] 04/06/2024 6:45 AM MANAGER PATHOLOGY Appointment Department of Radiology, [facility], in [place], [place] [address] [place] [address] Juan Carlos Domingo M.B.B.S. [address] [place] [phone] Scheduled Orders Name Type Priority Associated Diagnoses Order Schedule NM Gastric Emptying with SB with Colonic Transit Time 48 hr Imaging RAD - Routine (most inpatients and all outpatients) Constipation Expected: 02/21/2024, Expires: 05/23/2025 Anorectal Manometry GI Routine Constipation Expected: 02/21/2024, Expires: 05/23/2025 DX Abdomen 1 View Imaging RAD - Routine (most inpatients and all outpatients) Constipation Expected: 02/21/2024, Expires: 05/23/2025 Enema Prep Procedures Routine Constipation Expected: 02/21/2024, Expires: 05/23/2025 documented as of this encounter Visit Diagnoses Diagnosis Constipation documented in this encounter
--- OUTSIDE RECORDS SUMMARY | 2024-04-01 12:10 | XMS_ITS | Clinical Summary ---
Author Organization [employer] [facility] Address [place], [place] [address] Care Team Providers Care Cap And Hat Production Supervisor Name Role Phone Clinic, [facility] Pr ovider Pcp, No Unavailable Unavailable Allergies No known active allergies Medications Medication Sig Dispensed Refills Start Date End Date Status NAPROXEN 500 MG TAB prn 0 12/23/2006 Activ e SPRINTEC (28) 0.25 MG-35 MCG TAB take 1 tablet by oral route once daily 0 12/23/2006 Active DARVOCET-N 100 100 MG-650 MG TABIndications:Cervica lgia 1-2 Four times a day as needed for pain 30 0 12/23/2006 Active Active Problems Problem Noted Date Diagnosed Date ACNE 12/23/2006 DYSMENORRHEA 12/23/2006 Encounters Date Type Department Care Team Description 03/24/2024 12:12 PM GUITAR MAKER - 03/24/2024 7:25 PM [facility] [address] [place] [address] Asad Ferrell PA Sibley, MD Subha Concepcion, Ginger Villar, Julianna Albert DO Generalized abdominal pain (Primary Dx); Constipation, unspecified constipation type Discharge Disposition: Home Self Care from Last 3 Months Immunizations Name Administration Dates Next Due DTaP 12/18/1993,08/17/1989,1988 ,1988,1988 Hepatitis B (Peds) 02/02/2001,08/11/2000, 001 MMR 06/09/2000,06/01/1989 Oral Polio Vaccine 12/18/1993,08/17/1989, 989,1988 Td (Age >=7 Years) 06/09/2000 Social History Tobacco Use Types Packs/Day Years Used Date Smoking Tobacco: Never Alcohol Use Standard Drinks/Week Comments No 0 (1 standard drink = 0.6 oz pur e alcohol) Sex and Gender Information Value Date Recorded Sex Assigned at Not on file Gender Identity Not on file Sexual Orientation Not on file Obstetrics History Last Filed Vital Signs Vital Sign Reading Time Taken Comments Blood Pressure 93/50 03/24/2024 7:19 PM GUITAR MAKER Pulse 72 03/24/2024 7:19 PM GUITAR MAKER Temperature 36.5 C (97.7 F) 03/24/2024 10:39 AM GUITAR MAKER Respiratory Rate 18 03/24/2024 10:39 AM GUITAR MAKER Oxygen Saturation 97% 03/24/2024 7:19 PM GUITAR MAKER Inhaled Oxygen Concentration - - Weight 54.4 kg (120 lb) 03/24/2024 10:39 AM GUITAR MAKER Height 162.6 cm (5' 4) 03/24/2024 10:39 AM GUITAR MAKER Body Mass Index 20.6 03/24/2024 10:39 AM GUITAR MAKER Plan of Treatment Health Maintenance Due Date Last Done Comments Tdap 01/29/1999 Depression screening for age 12+ 2000 HIV for age 15-65 01/29/2003 BMI (ht and wt on same day) for age 18+ 01/29/2006 Hepatitis C screening for age 18-79 01/29/2006 Tetanus booster 06/09/2010 06/09/2000 Pap test for age 21-65 02/15/2023 , 01/26/2020, 01/26/2020, Additional history exists COVID-19 vaccine series ( season) 2024 06/30/2021, 09/26/2020, 08/29/2020 Influenza for age 9-49 01/09/2024 Pneumococcal series for age 6-64 Aged Out No longer eligible based on patient's age to complete this topic Procedures Procedure Name Priority Date/Time Associated Diagnosis Comments US PELVIS COMPLETE TA AND TV WITH DUPLEX STAT 03/24/2024 6:[address] ABDOMEN PELVIS W STAT 03/24/2024 2 :30 PM GUITAR MAKER LIPASE STAT 03/24/2024 12:42 PM GUITAR MAKER URINE POCT STAT 03/24/2024 12:42 PM GUITAR MAKER UA W/ SEDIMENT EXAM REFLEXED PER CRITERIA STAT 03/24/2024 12:42 PM GUITAR MAKER HEPATIC FUNCTION PANEL STEVO 03/24/2024 11:28 AM GUITAR MAKER BASIC METABOLIC PANEL STAT 03/24/2024 11:28 AM GUITAR MAKER CBC W PLT NO DIFF STAT 03/24/2024 11: 28 AM GUITAR MAKER PORCELAIN WAXER THIN PREP PAP SCREEN IMAGED Routine 02/16/2020 3:30 PM CDT from Last 3 Months or Most Recently Relevant to Health Maintenance Results * US PELVIS COMPLETE TA AND TV WITH DUPLEX (03/24/2024 6:45 PM GUITAR MAKER) Anatomical Region Laterality Modality Pelvis Ultrasound 03/24/2024 6:45 PM GUITAR MAKER Impressions 03/24/2024 6:58 PM GUITAR MAKER 1. IUD noted in appropriate position within the endometrium. No other acute findings. Narrative 03/24/2024 6:58 PM GUITAR MAKER For Patients: As a result of the Century Cures Act, medical imaging exams and procedure reports are released immediately into your electronic medical record. You may view this report before your referring provider. If you have questions, please contact your health care provider. EXAM: US PELVIS COMPLETE TA AND TV WITH DUPLEX LOCATION: [facility] DATE: 03/24/2024 INDICATION: Pain/tenderness COMPARISON: None. TECHNIQUE: Transabdominal scans were performed. Endovaginal ultrasound was performed to better visualize the adnexa. Color flow with spectral Doppler and waveform analysis performed. FINDINGS: UTERUS: 6.9 x 4.4 x 5.3 cm. Normal in size and position with no masses. ENDOMETRIUM: 4 mm. Normal smooth endometrium. IUD is noted within the endometrium within appropriate position. RIGHT OVARY: 3.5 x 1.6 x1.8 cm. Normal with arterial and venous duplex flow identified. LEFT OVARY: 2.3 x 1.0 x 0.9 cm. Normal with arterial and venous duplex flow identified. No significant free fluid. Procedure Note Garth Camp MD - 03/24/2024 For Patients: As a result of the Century Cures Act, medical imagingexams and procedure reports are released immediately into your electronicmedical record. You may view this report before your referring provider.If you have questions, please contact your health care provider. EXAM: US PELVIS COMPLETE TA AND TV WITH DUPLEX LOCATION: [facility] DATE: 03/24/2024 INDICATION: Pain/tenderness COMPARISON: None. TECHNIQUE: Transabdominal scans were performed. Endovaginal ultrasound wasperformed to better visualize the adnexa. Color flow with spectral Dopplerand waveform analysis performed. FINDINGS: UTERUS: 6.9 x 4.4 x 5.3 cm. Normal in size and position with no masses. ENDOMETRIUM: 4 mm. Normal smooth endometrium. IUD is noted within theendometrium within appropriate position. RIGHT OVARY: 3.5 x 1.6 x1.8 cm. Normal with arterial and venous duplexflow identified. LEFT OVARY: 2.3 x 1.0 x 0.9 cm. Normal with arterial and venous duplexflow identified. No significant free fluid. IMPRESSION: 1. IUD noted in appropriate position within the endometrium. No otheracute findings. Asad CHESTER US * CT Abdomen Pelvis w IV (Oral Contrast = NO) (03/24/2024 2:30 PM GUITAR MAKER) Anatomical Region Laterality Modality Abdomen, Pelvis, AORTA, LIVER, SPLEEN Computed Tomography 03/24/2024 2:30 PM GUITAR MAKER Impressions 03/24/2024 2:40 PM GUITAR MAKER 1. No acute findings in the abdomen and pelvis. Narrative 03/24/2024 2:40 PM GUITAR MAKER For Patients: As a result of the Cures Act, medical imaging exams and procedure reports are released immediately into your electronic medical record. You may view this report before your referring provider. If you have questions, please contact your health care provider. EXAM: CT ABDOMEN PELVIS W LOCATION: [facility] DATE: 03/24/2024 INDICATION: Abdominal or pelvic pain COMPARISON: None. TECHNIQUE: CT scan of the abdomen and pelvis was performed following injection of IV contrast. Multiplanar reformats were obtained. Dose reduction techniques were used. CONTRAST: Omnipaque 350 80mL FINDINGS: LOWER CHEST: Normal. HEPATOBILIARY: Hepatic cysts. Liver and gallbladder within normal limits. PANCREAS: Normal. SPLEEN: Normal. ADRENAL GLANDS: Normal. KIDNEYS/BLADDER: No significant mass, stone, or hydronephrosis. BOWEL: No obstruction or inflammatory change. Moderate stool noted throughout the colon suggesting constipation. LYMPH NODES: Normal. VASCULATURE: Normal. PELVIC ORGANS: Bladder within normal limits. IUD noted within the uterus. MUSCULOSKELETAL: Normal. Procedure Note Garth Camp MD - 03/24/2024 For Patients: As a result of the Cures Act, medical imagingexams and procedure reports are released immediately into your electronicmedical record. You may view this report before your referring provider.If you have questions, please contact your health care provider. EXAM: CT ABDOMEN PELVIS W LOCATION: [facility] DATE: 03/24/2024 INDICATION: Abdominal or pelvic pain COMPARISON: None. TECHNIQUE: CT scan of the abdomen and pelvis was performed followinginjection of IV contrast. Multiplanar reformats were obtained. Dosereduction techniques were used. CONTRAST: Omnipaque 350 80mL FINDINGS: LOWER CHEST: Normal. HEPATOBILIARY: Hepatic cysts. Liver and gallbladder within normallimits. PANCREAS: Normal. SPLEEN: Normal. ADRENAL GLANDS: Normal. KIDNEYS/BLADDER: No significant mass, stone, or hydronephrosis. BOWEL: No obstruction or inflammatory change. Moderate stool notedthroughout the colon suggesting constipation. LYMPH NODES: Normal. VASCULATURE: Normal. PELVIC ORGANS: Bladder within normal limits. IUD noted within theuterus. MUSCULOSKELETAL: Normal. IMPRESSION: 1. No acute findings in the abdomen and pelvis. Asad CHESTER CT * URINE POCT (03/24/2024 12:42 PM GUITAR MAKER) ,URIN E Negative Negative 03/24/2024 1:48 PM GUITAR MAKER [facility] Urine URINE SPECIMEN / Unknown Non-Blood / Unknown 03/24/2024 12:42 PM GUITAR MAKER 03/24/2024 12:51 PM GUITAR MAKER Eleazar CHESTER URINE [facility] SENDOUT [place] [address]IP [phone] [place] [address] * (ABNORMAL) UA W/ SEDIMENT EXAM REFLEXED PER CRITERIA (03/24/2024 12:42 PM GUITAR MAKER) COLOR Yellow Yellow Color 03/24/2024 1:04 PM [facility] CLARITY Clear Clear Clarity 03/24/2024 1:04 PM [facility] SPECIFIC GRAVITY,URINE >=1.030(A) 1.010, 1.015, 1.020, 1.025 03/24/2024 1:04 PM [facility] PH,URINE 8.5 6.0, 7.0, 8.0, 5.5, 6.5, 7.5, 8.5 03/24/2024 1:04 PM [facility] UROBILINOGEN, QUALITATIVE Normal Normal EU/dl 03/24/2024 1:04 PM [facility] PROTEIN, URINE Negative Negative mg/dL 03/24/2024 1:04 PM [facility] GLUCOSE, URINE Negative Negative mg/dL 03/24/2024 1:04 PM [facility] KETONES,URINE Negative Negative mg/dL 03/24/2024 1:04 PM [facility] BILIRUBIN,URI NE Negative Negative 03/24/2024 1:04 PM [facility] OCCULT BLOOD,URINE Negative Negative 03/24/2024 1:04 PM [facility] NITRITE Negative Negative 03/24/2024 1:04 PM [facility] LEUKOCYTE ESTERASE Negative Negative 03/24/2024 1:04 PM [facility] Urine URINE SPECIMEN / Unknown Non-Blood / Unknown 03/24/2024 12:42 PM GUITAR MAKER 03/24/2024 12:51 PM GUITAR MAKER Eleazar CHESTER URINE [facility] SENDOUT [place] ZIP [phone] [place] [address] * LIPASE (03/24/2024 12:42 PM GUITAR MAKER) LIPASE 39.1 13.0 - 60.0 IU/L 03/24/2024 1:20 PM [facility] Blood BLOOD SPECIMEN / Unknown Non-Lab Venipuncture / Unknown 03/24/2024 12:42 PM GUITAR MAKER 03/24/2024 12:55 PM GUITAR MAKER Asad CHESTER CHEMISTRY Performing Organization Address City/[facility]/ZIP Co de Phone Number [facility] SENDOUT INTERNAL ZIP [phone] [place] [id number] * CBC W PLT NO DIFF (03/24/2024 11:28 AM GUITAR MAKER) WHITE BLOOD COUNT 5.8 4.5 - 11.0 thou/cu mm 03/24/2024 11:39 AM [facility] RED BLOOD COUNT 4.45 4.00 - 5.20 mil/cu mm 03/24/2024 11:39 AM [facility] HEMOGLOBIN 14.1 12.0 - 16.0 g/dL 03/24/2024 11:39 AM [facility] HEMATOCRIT 41.0 33.0 - 51.0 % 03/24/2024 11:39 AM [facility] MCV 92 80 - 100 fL 03/24/2024 11:39 AM [facility] MCH 31.7 26.0 - 34.0 pg 03/24/2024 11:39 AM [facility] MCHC 34.4 32.0 - 36.0 g/dL 03/24/2024 11:39 AM [facility] RDW 12.7 11.5 - 15.5 % 03/24/2024 11:39 AM [facility] PLATELET COUNT 147 140 - 440 thou/cu mm 03/24/2024 11:39 AM [facility] MPV 9.3 6.5 - 11.0 fL 03/24/2024 11:39 AM [facility] NRBC 0.0 % 03/24/2024 11:39 AM GUITAR MAKER [facility] ABS NRBC 0.0 thou /cu mm 03/24/2024 11:39 AM [facility] Blood BLOOD SPECIMEN / Unknown Non-Lab Venipuncture / Unknown 03/24/2024 11:28 AM GUITAR MAKER 03/24/2024 11:33 AM GUITAR MAKER Eleazar CHESTER HEMATOLOGY [facility] SENDOUT INTERNAL ZIP [phone] [place] [address] * HEPATIC FUNCTION PANEL (03/24/2024 11:28 AM GUITAR MAKER) ALBUMIN 4.8 4.0 - 4.9 g/dL 03/24/2024 12:27 PM [facility] PROTEIN,TOTAL 7.6 6.0 - 8.0 g/dL 03/24/2024 12:27 PM [facility] BILIRUBIN,TOTAL 0.6 0.0 - 1.2 mg/dL 03/24/2024 12:27 PM [facility] BILIRUBIN,DIRECT 0.2 0.0 - 0.2 mg/dL 03/24/2024 12:27 PM [facility] BILIRUBIN,INDIRE CT 0.4 0.2 - 0.8 mg/dL 03/24/2024 12:27 PM [facility] ALK PHOSPHATASE 53 35 - 104 IU/L 03/24/2024 12:27 PM [facility] ALT (SGPT) 14 10 - 35 IU/L 03/24/2024 12:27 PM [facility] AST (SGOT) 22 10 - 35 IU/L 03/24/2024 12:27 PM [facility] Blood BLOOD SPECIMEN / Unknown Non-Lab Venipuncture / Unknown 03/24/2024 11:28 AM GUITAR MAKER 03/24/2024 11:33 AM GUITAR MAKER Asad CHESTER CHEMISTRY [facility] SENDOUT INTERNAL ZIP [phone] [place] [address] * (ABNORMAL) BASIC METABOLIC PANEL (03/24/2024 11:28 AM [facility]) SODIUM 138 136 - 145 mmol/L 03/24/2024 12:03 PM [facility] POTASSIUM 4.5 3.5 - 5.1 mmol/L 03/24/2024 12:03 PM [facility] CHLORIDE 102 98 - 107 mmol/L 03/24/2024 12:03 PM [facility] CO2,TOTAL 27 22 - 29 mmol/L 03/24/2024 12:03 PM [facility] ANION GAP 9 5 - 18 03/24/2024 12:03 PM [facility] GLUCOSE 91 70 - 99 mg/dL 03/24/2024 12:03 PM [facility] CALCIUM 9.5 8.8 - 10.4 mg/dL 03/24/2024 12:03 PM [facility] Comment: Reference ranges for this test were updated on 03/14/2024 to reflect our healthy population more accurately. Reference range changes are not retroactively applied to results, but previous results using the same methodology can be interpreted in the context of the new reference range. BUN 24(H) 6 - 20 mg/dL 03/24/2024 12:03 PM [facility] CREATININE 0.79 0.50 - 0.90 mg/dL 03/24/2024 12:03 PM [facility] BUN/CREAT RATIO 30(H) 10 - 20 12:03 PM [facility] eGFR >90 >90 mL/min/1.7 3m2 03/24/2024 12:03 PM [facility] Comment:As of 2021, eG FR is calculated by the CKD-EPI creatinine equation without race adjustment. eGFR can be influenced by muscle mass, exercise, and diet. The reported eGFR is an estimation only and is only applicable if the renal function is stable. Blood BLOOD SPECIMEN / Unknown Non-Lab Venipuncture / Unknown 03/24/2024 11:28 AM GUITAR MAKER 03/24/2024 11:33 AM [facility] Eleazar CHESTER CHEMISTRY [facility] SENDOUT INTERNAL Z[address] [phone] [place] [address] * PORCELAIN WAXER THIN PREP PAP SCREEN IMAGED (02/16/2020 3:30 PM CDT) Case Report Gynecologic Cytology Report Case: [id number] Authorizing Provider: oKri Quiroz PA-C Collected: 02/16/2020 1530 Ordering Location: [facility] Received: 02/20/2020 0913 First Screen: Monica Triplett Specimen: PORCELAIN WAXER ThinPrep Vial Screening, Cervical/Vaginal 02/28/2020 2:15 PM CDT [facility] INTERPRETATION/ RESULT NEGATIVE FOR INTRAEPITHELIAL LESION OR MALIGNANCY (NIL) (none) 02/28/2020 2:[address] [facility] IMEN ADEQUACY Satisfactory for evaluation Endocervical component present 02/28/2020 2:15 PM CDT [facility] HPV REQUEST HPV not requested 2019 2:15 PM CDT [facility] Last Pap Date 01/26/2020 02/28/2020 2:15 PM CDT [facility] Last Pap Result 0 2:15 PM CDT [facility] Comment:Unsatisfactory pap, HPV neg Menstrual Status 02/28/2020 2:15 PM CDT [facility] Additional Information 02/28/2020 2:15 PM CDT [facility] Comment: Interpreted at [facility] - [address] [facility] [address], [place] [address] Automated Review Successful 02/28/2020 2:15 PM CDT [facility] Comment:Specimen processed s uccessfully by automated director of operations for therapy device, ThinPrep Imaging System, [employer] Note The pap test is a screening technique, not a diagnostic procedure. It is used primarily to screen for squamous cancers and precursor lesions. Published studies have shown that it is subject to both false negative and false positive results. The pap test should not be used as the sole means to diagnose or exclude pre-malignant and malignant lesions. 02/28/2020 2:15 PM CDT [facility] Other (Cervical/Vagina l) 02/16/2020 3:30 PM CDT 02/20/2020 9:13 AM CDT August L Gabriella PASCUAL PATHOLOGY/CYTOLOGY [facility] [address] [place] [address], from Last 3 Months or Most Recently Relevant to Health Maintenance Care Teams Cap And Hat Production Supervisor Relationship Specialty Start Date End Date Clinic, [facility] [address] [place] [address] PCP - General 03/24/24 Pcp, No . 03/24/24
--- OUTSIDE RECORDS SUMMARY | 2024-04-01 12:10 | XMS_ITS | Encounter Summary ---
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
--- OUTSIDE RECORDS SUMMARY | 2024-04-01 12:10 | XMS_ITS ---
Author Organization [facility] Address [address] [place] [address] Care Team Providers Care Strategic Manager Name Role Phone Unavailable Unavailable Unavailable Surgery Details Not on file Complications Check Surgery Details section. Procedure Estimated Blood Loss Check Surgery Details section. Procedure Findings Check Surgery Details section. Procedure Specimens Taken Check Surgery Details section.
--- OUTSIDE RECORDS SUMMARY | 2024-04-01 12:10 | XMS_ITS | Clinical Summary ---
Author Organization [facility] Address [address] [place] [address] Care Team Providers Care Special Officer Automat Name Role Phone Unavailable Primary Care Provider Unavailabl e Source Comments Patient records contain information from all sites at [facility]. For routine questions regarding patient records, call [phone] during business hours, M-F 8:00 AM - 5:00 PM Central Time. Record requests for emergency care only can be directed to [phone] at any time.[facility] Allergies No known active allergies Medications LEVONORGESTREL UTRN by intrauterine route. 3 Active polyethylene glycol (Miralax) 17 gram/dose oral powder Take 4 g by mouth. 3 Active multivitamin tablet Take 1 tablet by mouth daily. Active saccharomyces boulardii (Florastor) 250 mg capsule Take 1 capsule by mouth 2 (two) times a day. Active Encounters Date Type Department Care Team Description 03/30/2024 9:30 AM HOSPICE CLINICAL MANAGER Clinical Communication Virtual Review in [place], [place] [address] [place] [address] Pre-visit Intake 02/21/2024 Orders Only Division of Gastroenterology in [place], [place] [address] [place] [phone] [facility], Provider, Constipation from Last 3 Months Family History Medical History Relation Name Comments Breast cancer Maternal Grandmother Licha Avina She wa s in her 50 s Clotting disorder Mother Nae Boyer Type 2 Hypertension Mother Nae Boyer Stroke Mother Nae Boyer 20, 30, a nd 40 Coronary artery disease Paternal Grandfather Naun Boyer Had a couple 50s and 60s Colon cancer Paternal Grandmother Anushka Boyer She was in her 40 s Clotting disorder Sister Kasie Walker Type 2 ADD Son Alok Bloom ADHD 7 yrs old Relation Name Status Comments Maternal Grandmother Licha Avina Alive Mother Nae Boyer Alive Paternal Grandfather Naun Boyer Alive Paternal Grandmother Anushka Boyer Alive Sister Kasie Walker Alive Son Alok Bloom Alive Social History Tobacco Use Types Packs/Day Years Used Date Smoking Tobacco: Never Passive Smoke Exposure: Never Smokeless Tobacco: Never Tobacco Cessation:Counseling Given: Not Answered Alcohol Use Standard Drinks/Week Comments Yes 0 (1 standard drink = 0.6 oz pure alcohol) Occasionally I will have one drink - lately 1 per month [facility] Utilities Answer Date Recorded In the past 12 months has th e Cint, gas, oil, or water [employer] threatened to shut off services in your home? No 03/29/2024 Exercise Vital Sign Answer Date Recorde d On average, how many days pe r week do you engage in moderate to strenuous exercise (like a brisk walk)? 3 days 03/29/2024 On average, how many minutes do you engage in exercise at this level? 40 min 03/29/2024 Hunger Vital Sign Answer Date Recorded Within the past 12 months, y ou worried that your food would run out before you got the money to buy more. Never true 03/29/20 Within the past 12 months, t he food you bought just didn't last and you didn't have money to get more. Never true 03/29/2024 PRAPARE - Transportation Answer Date Re corded In the past 12 months, has l ack of transportation kept you from medical appointments or from getting medications? No 03/11 In the past 12 months, has l ack of transportation kept you from meetings, work, or from getting things needed for daily living? No 03/29/2024 Nutrition Answer Date Recorded On average, how many serving s of fruits and vegetables do you eat per day (serving size is equal to 1 cup or approximately the size of a tennis ball)? 5 or more 03/29/2024 Dental Answer Date Recorded Dental: Regular Dentist Yes 03/29/20 Employment Answer Date Recorded Employment status Employed and actively working without restrictions 03/29/2024 Housing Stability Answer Date Recorded What is your living situation today? I have a [facility] place to live 03/29/2024 Comments Unknown Sex and Gender Information Value Date Recorded Sex Assigned at Female 03/29/2024 8:07 PM HOSPICE CLINICAL MANAGER Legal Sex Female 11:57 AM CDT Gender Identity Female 03/29/2024 8:07 PM HOSPICE CLINICAL MANAGER Sexual Orientation Straight 03/29/2024 8: 07 PM HOSPICE CLINICAL MANAGER Plan of Treatment Upcoming Encounters Date Type Department Care Team (Latest Contact Info) Description 04/03/2024 7:15 AM HOSPICE CLINICAL MANAGER Appointment Department of Radiology, [facility] in [place], [place] [address] [place] [address] Juan Carlos Domingo M.B.B.S. [address] [place] [phone] 04/03/2024 8:00 AM HOSPICE CLINICAL MANAGER Comprehensive Visit Division of Gastroenterology in [place], [place] [address] [place] [phone] Juan Carlos Domingo M.B.B.S. [address] [place] [phone] 04/03/2024 1:50 PM HOSPICE CLINICAL MANAGER Hospital Encounter Division of Gastroenterology in [place], [place] [address] [place] [address] Juan Carlos Domingo M.B.B.S. [address] [place] [phone] 04/04/2024 7:15 AM HOSPICE CLINICAL MANAGER Appointment Department of Radiology, [facility], in [place], [place] [address] [place] [address] Juan Carlos Domingo M.B.B.S. [address] [place] [phone] 04/05/2024 6:45 AM HOSPICE CLINICAL MANAGER Appointment Department of Radiology, [facility], in [place], [place] [address] [place] [address] Juan Carlos Domingo M.B.B.S. [address] [place] [address] 04/06/2024 6:45 AM HOSPICE CLINICAL MANAGER Appointment Department of Radiology, [facility], in [place], [place] [address] [place] [address] Juan Carlos Domingo M.B.B.S. [address] [place] [address] Health Maintenance Due Date Last Done Comments HIV Screening 1988 Hepatitis C Screening 1988 Lipid (Cholesterol) Screening 1988 Hepatitis B Vaccines (1 of 3 - 19+ 3-dose series) 01/29/2007 Cervical/Vaginal Cancer Screening 02/15/2023 02/16/2020 Depression Screening (Annual PHQ-2) 05/10/2023 COVID-19 Vaccine ( season) 2024 06/30/2021, 09/26/2020, 08/29/2020 Influenza Vaccine (#1) 2024 , 02/16/2020, 03/03/2019, Additional history exists DTaP,Tdap,and Td Vaccines (3 - Td or Tdap) 09/12/2029 09/13/2019, 10/02/2016 HPV Vaccines Aged Out No longer eligi ble based on patient's age to complete this topic IPV Vaccines Aged Out No longer eligi ble based on patient's age to complete this topic Pneumococcal vaccine (0-64 years) Aged Out No longer eligible based on patient's age to complete this topic Medical Devices Implanted Type Area Production Aide Device Identifier Shelf Expiration Date Model / Serial / Lot Intrauterine Device Intrauterine Device Uterus Insurance [facility]
--- OUTSIDE RECORDS SUMMARY | 2024-04-01 12:10 | XMS_ITS | Encounter Summary ---
Author Organization [facility] Address [address] [place] [address] Phone [email or web address] Care Team Providers Care Hand Braille Transcriber Name Role Phone None, At This Time Primary Care Provider Unavail able Encounter Details Date Type Department Care Team (Late st Contact Info) Description 02/17/2024 Claims Summary [facility] [address] [place] [address] Provider, Claims Summary External, [address] [place], [place] [id number] Social History Tobacco Use Types Packs/Day Years Used Date Smoking Tobacco: Never Smokeless Tobacco: Never Alcohol Use Standard Drinks/Week Comments Not Currently 1 (1 standard drink = 0.6 oz pur e alcohol) Alcohol Use Answer Date Recorded Alcohol Use Status Not Currently 11/05/2023 Comments Unknown Sex and Gender Information Value Date Recorded Sex Assigned at Not on file Legal Sex Female 12:50 PM B2B APPOINTMENT SETTER Gender Identity Not on file Sexual Orientation Not on file documented as of this encounter Plan of Treatment Not on file documented as of this encounter Visit Diagnoses Not on filedocumented in this encounter Care Teams Hand Braille Transcriber Relationship Specialty Start Date End Date None, [place] [address] PCP - General Family Medicine 11/05/23 documented as of this encounter
--- OUTSIDE RECORDS SUMMARY | 2024-04-01 12:10 | XMS_ITS | Encounter Summary ---
Author Organization [facility] Address [address] [place] [address] Care Team Providers Care Tow Operator Name Role Phone Unavailable Primary Care Provider Unavailabl e Reason for Visit * Reason Onset Date Comments Pre-visit Intake 03/30/2024 * Appointment Request (Routine) - Authorized Specialty Diagnoses / Procedures Referred By Contact Referred To Contact Gastroenterology and Hepatology Referral ID Status Reason Start Date Expiration Date V isits Requested Visits Authorized [id number] Authorized 02/21/2024 02/20/2025 1 1 Encounter Details Date Type Department Care Team (Latest Contact Info) Description 03/30/2024 9:30 AM UROGYNAECOLOGIST Clinical Communication Virtual Review in [place], [place] [address] [place] [address] Pre-visit Intake Social History Tobacco Use Types Packs/Day Years Used Date Smoking Tobacco: Never Passive Smoke Exposure: Never Smokeless Tobacco: Never Tobacco Cessation:Counseling Given: Not Answered Alcohol Use Standard Drinks/Week Comments Yes 0 (1 standard drink = 0.6 oz pure alcohol) Occasionally I will have one drink - lately 1 per month [facility] Utilities Answer Date Recorded In the past 12 months has [employer], gas, oil, or water [employer] threatened to shut off services in your [...] money to buy more. Never true 03/29/20 24 Within the past 12 months, t he [...] your living situation today? I have a [facility] place to live 03/29/2024 Comments Unknown Sex and Gender Information Value Date Recorded Sex Assigned at Female 03/29/2024 8:07 PM UROGYNAECOLOGIST Legal Sex Female 11:57 AM CDT Gender Identity Female 03/29/2024 8:07 PM UROGYNAECOLOGIST Sexual Orientation Straight 03/29/2024 8: 07 PM UROGYNAECOLOGIST documented as of this encounter Plan of Treatment Upcoming Encounters Date Type Department Care Team (Latest Contact Info) Description 04/03/2024 7:15 AM UROGYNAECOLOGIST Appointment Department of Radiology, [facility], in [place], [place] [address] [place] [address] Juan Carlos Domingo M.B.B.S. [address] [place] [address] 04/03/2024 8:00 AM UROGYNAECOLOGIST Comprehensive Visit Division of Gastroenterology in [place], [place] [address] [place] [phone] Juan Carlos Domingo M.B.B.S. [address] [place] [phone] 04/03/2024 1:50 PM UROGYNAECOLOGIST Hospital Encounter Division of Gastroenterology in [place], [place] [address] [place] [address] Juan Carlos Domingo M.B.B.S. [address] [place] [phone] 04/04/2024 7:15 AM UROGYNAECOLOGIST Appointment Department of Radiology, [facility], in [place], [place] [address] [place] [address] Juan Carlos Domingo M.B.B.S. [address] [place] [phone] 04/05/2024 6:45 AM UROGYNAECOLOGIST Appointment Department of Radiology, [facility], in [place], [place] [address] [place] [address] Juan Carlos Domingo M.B.B.S. [address] [place] [phone] 04/06/2024 6:45 AM UROGYNAECOLOGIST Appointment Department of Radiology, [facility], in [place], [place] [address] [place] [address] Juan Carlos Domingo M.B.B.S. [address] [place] [phone] documented as of this encounter Visit Diagnoses Not on filedocumented in this encounter
--- OUTSIDE RECORDS SUMMARY | 2024-04-01 12:10 | XMS_ITS | Referral Summary ---
Author Organization [facility] Address [address] [place] [address] Care Team Providers Care Instructional Supervisor Name Role Phone Unavailable Primary Care Provider Unavailabl e Source Comments Patient records contain information from all sites at [facility]. For routine questions regarding patient records, call [phone] during business hours, M-F 8:00 AM - 5:00 PM Central Time. Record requests for emergency care only can be directed to [phone] at any time.[facility] Encounters Date Type Department Care Team Description 03/30/2024 9:30 AM OCCUPATIONAL THERAPIST AIDE Clinical Communication Virtual Review in [place], [place] 200 [place] [address] Pre-visit Intake 02/21/2024 Orders Only Division of Gastroenterology in [address] [phone] [facility], Provider, Constipation from Last 3 Months Allergies No known active allergies Medications LEVONORGESTREL UTRN by intrauterine route. 3 Active polyethylene glycol (Miralax) 17 gram/dose oral powder Take 4 g by mouth. 3 Active multivitamin tablet Take 1 tablet by mouth daily. Active saccharomyces boulardii (Florastor) 250 mg capsule Take 1 capsule by mouth 2 (two) times a day. Active Social History Tobacco Use Types Packs/Day Years Used Date Smoking Tobacco: Never Passive Smoke Exposure: Never Smokeless Tobacco: Never Tobacco Cessation:Counseling Given: Not Answered Alcohol Use Standard Drinks/Week Comments Yes 0 (1 standard drink = 0.6 oz pure alcohol) Occasionally I will have one drink - lately 1 per month [facility] Utilities Answer Date Recorded In the past 12 months has th e electric, gas, oil, or water [employer] threatened to shut off services in your [...] your living situation today? [facility] 03/29/2024 Comments Unknown Sex and Gender Information Value Date Recorded Sex Assigned at Female 03/29/2024 8:07 PM OCCUPATIONAL THERAPIST AIDE Legal Sex Female 11:57 AM CDT Gender Identity Female 03/29/2024 8:07 PM OCCUPATIONAL THERAPIST AIDE Sexual Orientation Straight 03/29/2024 8: 07 PM OCCUPATIONAL THERAPIST AIDE Plan of Treatment Upcoming Encounters Date Type Department Care Team (Latest Contact Info) Description 04/03/2024 7:15 AM OCCUPATIONAL THERAPIST AIDE Appointment Department of Radiology, [facility], in [place], [place] [address] [place] [address] Juan Carlos Domingo M.B.B.S. [address] [place] [address] 04/03/2024 8:00 AM OCCUPATIONAL THERAPIST AIDE Comprehensive Visit Division of Gastroenterology in [place], [place] [address] [place] [address] Juan Carlos Domingo M.B.B.S. [address] [place] [address] 04/03/2024 1:50 PM OCCUPATIONAL THERAPIST AIDE Hospital Encounter Division of Gastroenterology in [place], [place] [address] [place] [address] Juan Carlos Domingo M.B.B.S. [address] [place] [address] 04/04/2024 7:15 AM OCCUPATIONAL THERAPIST AIDE Appointment Department of Radiology, [facility] in [place], [place] [address] [place] [address] Juan Carlos Domingo M.B.B.S. [address] [place] [phone] 04/05/2024 6:45 AM OCCUPATIONAL THERAPIST AIDE Appointment Department of Radiology, [facility], in [place], [place] [address] [place] [address] Juan Carlos Domingo M.B.B.S. [address] [place] [phone] 04/06/2024 6:45 AM OCCUPATIONAL THERAPIST AIDE Appointment Department of Radiology, [facility], in [place], [place] [address] [place] [address] Juan Carlos Domingo M.B.B.S. [address] [place] [phone] Medical Devices Implanted Type Area Transfer Specialist Device Identifier Shelf Expiration Date Model / Serial / Lot Intrauterine Device Intrauterine Device Uterus Insurance [facility]
--- OUTSIDE RECORDS SUMMARY | 2024-04-01 12:10 | XMS_ITS | Encounter Summary ---
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
--- OUTSIDE RECORDS SUMMARY | 2024-04-01 12:10 | XMS_ITS | Clinical Summary ---
Author Organization [facility] Address [address] [place] [address] Phone CareA Better Tomorrow [email or web address] Care Team Providers Care Bank Sales And Service Manager Name Role Phone None, At This Time Primary Care Provider Unavail able Allergies No known active allergies Medications No known medications Active Problems No known active problems Encounters Date Type Department Care Team Description 03/22/2024 Claims Summary [facility] [address] [place] [phone] Provider, Claims Summary MD Srinivas 02/17/2024 Claims Summary [facility] [address] [place] [phone] Provider, Claims Summary MD Srinivas 01/19/2024 Claims Summary [facility] [address] [place] [phone] Provider, Claims Summary MD Srinivas from Last [...] on file Legal Sex Female 12:50 PM TRANSFER AND PUMPHOUSE OPERATOR CHIEF Gender Identity Not on file Sexual Orientation [...] - 19+ 3-dose series) 01/29/2007 Covid-19 Immunization (2023- season) 2024 06/30/2021, 09/26/2020, 08/29/2020 Influenza Immunization [...] patient's age to complete this topic Insurance [employer] [place] [place] Care Teams Bank Sales And Service Manager Relationship Specialty Start Date End Date None, [place] [address] PCP - General Family Medicine 11/05/23
== END 2024-03-29 08:13 | disposition home or self-care (01) ==
LOC: NFLDREF 04-01 12:09
PROVIDERS: PCP Internal Medicine; Referring Provider Internal Medicine; Visit Provider Registered Nurse
DX: N93.9 Abnormal uterine and vaginal bleeding, unspecified (principal)
CPT/HCPCS: 84443

== ENCOUNTER 2024-04-17 09:52 | Outpatient (CLI) | payer OTHER, SELFPAY ==
--- OUTSIDE RECORDS SUMMARY | 2024-04-17 09:55 | XMS_ITS | Encounter Summary ---
Author Organization [facility] Address [address] [place] [address] Care Team Providers Care Cocoa Press Operator Name Role Phone Unavailable Primary Care Provider Unavailabl e Reason for Visit * Outpatient (Routine) - Closed Specialty Diagnoses / Procedures Referred By Pino t Referred To Contact Diagnoses Constipation Procedures NM Gastric Emptying with SB with Colonic Transit Time 48 hr Juan Carlos Domingo M.B.B.S. 200 [place] [address] Phone: tel: fax: [facility] Referral ID Status Reason Start Date Expiration Date Visits Re quested Visits Authorized [id number] Closed 02/21/2024 02/20/2025 8 8 Encounter Details Date Type Department Care Team (Latest Contact Info) Description 04/06/2024 6:45 AM FOUNDER AND CEO - 04/06/2024 11:59 PM [facility] Hospital Encounter Department of Radiology, [facility], in [place], [place] [address] [place] [address] Juan Carlos Domingo M.B.B.S. 200 [place] [phone] Discharge Disposition: Home or Self Care Social History Tobacco Use Types Packs/Day Years Used Date Smoking Tobacco: Never Passive Smoke Exposure: Never Smokeless Tobacco: Never Alcohol Use Standard Drinks/Week Comments Yes 0 (1 standard drink = 0.6 oz pure alcohol) Occasionally I will have one drink - lately 1 per month [facility] Utilities Answer Date Recorded In the past 12 months has [facility] [employer], gas, oil, or water [employer] threatened to shut off services in your [...] your living situation today? I have a [facility] place to live 03/29/2024 Comments Unknown Sex and Gender Information Value Date Recorded Sex Assigned at Female 03/29/2024 8:07 PM FOUNDER AND CEO Legal Sex Female 11:57 AM CDT Gender Identity Female 03/29/2024 8:07 PM FOUNDER AND CEO Sexual Orientation Straight 03/29/2024 8: 07 PM FOUNDER AND CEO documented as of this encounter Medications at Time of Discharge LEVONORGESTREL UTRN by intrauterine route. 12/07/2022 multivitamin tablet Take 1 tablet by mouth daily. polyethylene glycol (Miralax) 17 gram/dose oral powder Take 4 g by mouth. 03/23/2023 polyethylene glycol-electroly apoorva (Golytely) 236-22.74-6.74 -5.86 gram solution Take first portion of the prep at 4pm the evening before and start second portion 3 to 6 hours before and finish 2 hours prior to report time 4000 mL 04/03/2024 saccharomyces boulardii (Florastor) 250 mg capsule Take 1 capsule by mouth 2 (two) times a day. documented as of this encounter Plan of Treatment Upcoming Encounters Date Type Department Care Team (Latest Contact Info) Description 04/17/2024 3:00 PM FOUNDER AND CEO Hospital Encounter Division of Gastroenterology in [place], [place] [address] [place] [address] Juan Carlos Domingo M.B.BGailS. [address] [place] [address] documented as of this encounter Procedures Procedure Name Priority Date/Time Associated Diagnosis Comments NM GASTRIC EMPTYING WITH SB WITH COLONIC TRANSIT TIME 48 HR RAD - Routine (most inpatients and all outpatients) 04/07/2024 7:47 AM FOUNDER AND CEO Constipation documented in this encounter Results * NM Gastric Emptying with SB with Colonic Transit Time 48 hr (04/07/2024 7:47 AM FOUNDER AND CEO) Anatomical Region Laterality Modality Abdomen, Pelvis, Nuclear Med icine RST LOS, Nuclear Medicine ARZ LOS, Nuclear Medicine FLA LOS, Nuclear Medicine N/A Nuclear Medicine Impressions 04/07/2024 8:36 AM FOUNDER AND CEO 1. Gastric emptying is within normal limits. 2. Colonic transit is within normal limits. Narrative 04/07/2024 8:36 AM FOUNDER AND CEO EXAM: NM GASTRIC EMPTYING WITH SB WITH COLONIC TRANSIT TIME 48 HR RADIOPHARMACEUTICAL/MEDS: Route: oral indium In 111 charcoal capsule (In-111 Charcoal Capsule),0.104 millicurie Route: oral technetium Tc 99m Sulfur Colloid solution (Tc-99m Sulfur Colloid) , 1.048 millicurie TECHNIQUE: After oral ingestion of the standard radiolabeled meal and a radiolabeled charcoal capsule, sequential anterior and posterior planar images of the abdomen were obtained out to 48 hours for evaluation of gastric emptying, colonic filling, and colon transit. COMPARISON: Abdominal radiograph 04/03/2024 INDICATION: Constipation FINDINGS: Percent emptied from the stomach following a technetium labeled meal was: 1 hour 12% (normal 4 - 31%) 2 hour 39% (normal 25 - 71%) 4 hour 86% (normal 76 - 100%) 6 hour colonic filling 56% (mean 44%) Geometric center of In-111 colonic activity was: 24 hour 1.3 (normal 1.3 - 4.4) 48 hour 1.9 (normal 1.9 - 5.0) Change in geometric center from 24 to 48 hour: 0.6 (slow colonic transit <0.38) (rapid colonic transit >2.0) Ranges represent 5th to 95th percentile. The patient ate all of the meal. Procedure Note Bina Armenta M.D. - 04/07/2024 EXAM: NM GASTRIC EMPTYING WITH SB WITH COLONIC TRANSIT TIME 48 HR RADIOPHARMACEUTICAL/MEDS: Route: oral indium In 111 charcoal capsule (In-111 Charcoal Capsule),0.104millicurie Route: oral technetium Tc 99m Sulfur Colloid solution (Tc-99m Sulfur Colloid) , 1.048millicurie TECHNIQUE: After oral ingestion of the standard radiolabeled meal and aradiolabeled charcoal capsule, sequential anterior and posterior planarimages of the abdomen were obtained out to 48 hours for evaluation ofgastric emptying, colonic filling, and colon transit. COMPARISON: Abdominal radiograph 04/03/2024 INDICATION: Constipation FINDINGS: Percent emptied from the stomach following a technetium labeledmeal was: 1 hour 12% (normal 4 - 31%) 2 hour 39% (normal 25 - 71%) 4 hour 86% (normal 76 - 100%) 6 hour colonic filling 56% (mean 44%) Geometric center of In-111 colonic activity was: 24 hour 1.3 (normal 1.3 - 4.4) 48 hour 1.9 (normal 1.9 - 5.0) Change in geometric center from 24 to 48 hour: 0.6 (slow colonic transit <0.38) (rapid colonic transit >2.0) Ranges represent 5th to 95th percentile. The patient ate all of the meal. IMPRESSION: 1. Gastric emptying is within normal limits. 2. Colonic transit is within normal limits. Juan Carlos Camacho IMG NM PROCEDURES Final Result documented in this encounter Visit Diagnoses Not on filedocumented in this encounter
--- OUTSIDE RECORDS SUMMARY | 2024-04-17 09:55 | XMS_ITS | Encounter Summary ---
Author Organization [facility] Address [address] [place] [address] Care Team Providers Care Instruction Librarian Name Role Phone Unavailable Primary Care Provider Unavailabl e Reason for Visit * Outpatient (Routine) - Closed Specialty Diagnoses / Procedures Referred By Pino t Referred To Contact Diagnoses Constipation Procedures NM Gastric Emptying with SB with Colonic Transit Time 48 hr Juan Carlos Domingo M.B.B.S. [address] [place] [phone] Phone: tel: fax: [facility] Referral ID Status Reason Start Date Expiration Date Visits Re quested Visits Authorized [id number] Closed 02/21/2024 02/20/2025 8 8 Encounter Details Date Type Department Care Team (Latest Contact Info) Description 04/04/2024 10:08 AM [facility] - 04/04/2024 12:11 PM [facility] Hospital Encounter Department of Radiology, [facility], in [place], [place] [address] [place] [address] Juan Carlos Domingo M.B.B.S. [address] [place] [phone] Discharge Disposition: Home or Self Care Social History Tobacco Use Types Packs/Day Years Used Date Smoking Tobacco: Never Passive Smoke Exposure: Never Smokeless Tobacco: Never Alcohol Use Standard Drinks/Week Comments Yes 0 (1 standard drink = 0.6 oz pure alcohol) Occasionally I will have one drink - lately 1 per month [facility] Utilities Answer Date Recorded In the past 12 months has [facility] [employer], gas, oil, or water [employer] threatened to shut off services in your [...] your living situation today? I have a [facility] place to live 03/29/2024 Comments Unknown Sex and Gender Information Value Date Recorded Sex Assigned at Female 03/29/2024 8:07 PM FIELD CROP FARM WORKER Legal Sex Female 11:57 AM CDT Gender Identity Female 03/29/2024 8:07 PM FIELD CROP FARM WORKER Sexual Orientation Straight 03/29/2024 8: 07 PM FIELD CROP FARM WORKER documented as of this encounter Medications at [...] (Latest Contact Info) Description 04/17/2024 3:00 PM FIELD CROP FARM WORKER Hospital Encounter Division of Gastroenterology in [place], [place] [address] [place] [address] Juan Carlos Domingo M.B.BGailS. [address] [place] [address] documented as of this encounter Procedures Procedure Name Priority Date/Time Associated Diagnosis Comments NM GASTRIC EMPTYING WITH SB WITH COLONIC TRANSIT TIME 48 HR RAD - Routine (most inpatients and all outpatients) 04/07/2024 7:47 AM FIELD CROP FARM WORKER Constipation documented in this encounter Results * NM Gastric Emptying with SB with Colonic Transit Time 48 hr (04/07/2024 7:47 AM FIELD CROP FARM WORKER) Anatomical Region Laterality Modality Abdomen, Pelvis, Nuclear Med icine RST LOS, Nuclear Medicine ARZ LOS, Nuclear Medicine FLA LOS, Nuclear Medicine N/A Nuclear Medicine Impressions 04/07/2024 8:36 AM FIELD CROP FARM WORKER 1. Gastric emptying is within normal limits. 2. Colonic transit is within normal limits. Narrative 04/07/2024 8:36 AM FIELD CROP FARM WORKER EXAM: NM GASTRIC EMPTYING WITH SB WITH [...]
--- OUTSIDE RECORDS SUMMARY | 2024-04-17 09:55 | XMS_ITS | Encounter Summary ---
Author Organization [facility] Address [address] [place] [address] Care Team Providers Care Dry House Worker Name Role Phone Unavailable Primary Care Provider Unavailabl e Reason for Visit * Outpatient (Routine) - Closed Specialty Diagnoses / Procedures Referred By Pino t Referred To Contact Diagnoses Constipation Procedures NM Gastric Emptying with SB with Colonic Transit Time 48 hr Juan Carlos Domingo M.B.B.S. 200 [place] [address] Phone: tel: fax: [facility] Referral ID Status Reason Start Date Expiration Date Visits Re quested Visits Authorized [id number] Closed 02/21/2024 02/20/2025 8 8 Encounter Details Date Type Department Care Team (Latest Contact Info) Description 04/04/2024 12:12 PM BULLET LUBRICATING MACHINE OPERATOR - 04/04/2024 2:10 PM [facility] Hospital Encounter Department of Radiology, [facility], in [place], [place] [address] [place] [address] Juan Carlos Domingo M.B.B.S. 200 [place] [phone] Discharge Disposition: Home or Self Care Social History Tobacco Use Types Packs/Day Years Used Date Smoking Tobacco: Never Passive Smoke Exposure: Never Smokeless Tobacco: Never Alcohol Use Standard Drinks/Week Comments Yes 0 (1 standard drink = 0.6 oz pure alcohol) Occasionally I will have one drink - lately 1 per month [facility] Utilities Answer Date Recorded In the past 12 months has [facility] [employer], gas, oil, or water [employer] threatened to shut off services in your [...] your living situation today? I have a [facility] place to live 03/29/2024 Comments Unknown Sex and Gender Information Value Date Recorded Sex Assigned at Female 03/29/2024 8:07 PM BULLET LUBRICATING MACHINE OPERATOR Legal Sex Female 11:57 AM CDT Gender Identity Female 03/29/2024 8:07 PM BULLET LUBRICATING MACHINE OPERATOR Sexual Orientation Straight 03/29/2024 8: 07 PM BULLET LUBRICATING MACHINE OPERATOR documented as of this encounter Medications at [...] (Latest Contact Info) Description 04/17/2024 3:00 PM BULLET LUBRICATING MACHINE OPERATOR Hospital Encounter Division of Gastroenterology in [place], [place] [address] [place] [address] Juan Carlos Domingo M.B.BGailS. [address] [place] [address] documented as of this encounter Procedures Procedure Name Priority Date/Time Associated Diagnosis Comments NM GASTRIC EMPTYING WITH SB WITH COLONIC TRANSIT TIME 48 HR RAD - Routine (most inpatients and all outpatients) 04/07/2024 7:47 AM BULLET LUBRICATING MACHINE OPERATOR Constipation documented in this encounter Results * NM Gastric Emptying with SB with Colonic Transit Time 48 hr (04/07/2024 7:47 AM BULLET LUBRICATING MACHINE OPERATOR) Anatomical Region Laterality Modality Abdomen, Pelvis, Nuclear Med icine RST LOS, Nuclear Medicine ARZ LOS, Nuclear Medicine FLA LOS, Nuclear Medicine N/A Nuclear Medicine Impressions 04/07/2024 8:36 AM BULLET LUBRICATING MACHINE OPERATOR 1. Gastric emptying is within normal limits. 2. Colonic transit is within normal limits. Narrative 04/07/2024 8:36 AM BULLET LUBRICATING MACHINE OPERATOR EXAM: NM GASTRIC EMPTYING WITH SB WITH [...]
--- OUTSIDE RECORDS SUMMARY | 2024-04-17 09:55 | XMS_ITS | Encounter Summary ---
Author Organization [facility] Address [address] [place] [address] Care Team Providers Care Lead Web Developer Name Role Phone Unavailable Primary Care Provider Unavailabl e Reason for Visit * Outpatient (Routine) - Closed Specialty Diagnoses / Procedures Referred By Pino t Referred To Contact Diagnoses Constipation Procedures NM Gastric Emptying with SB with Colonic Transit Time 48 hr Juan Carlos Domingo M.B.B.S. 200 [place] [address] Phone: tel: fax: [facility] Referral ID Status Reason Start Date Expiration Date Visits Re quested Visits Authorized [id number] Closed 02/21/2024 02/20/2025 8 8 Encounter Details Date Type Department Care Team (Latest Contact Info) Description 04/04/2024 2:11 PM MANAGER WOUND - 04/04/2024 11:59 PM [facility] Hospital Encounter Department of Radiology, [facility], in [place], [place] [address] [place] [address] Juan Carlos Domingo M.B.B.S. 200 [place] [phone] Discharge Disposition: Home or Self Care Social History Tobacco Use Types Packs/Day Years Used Date Smoking Tobacco: Never Passive Smoke Exposure: Never Smokeless Tobacco: Never Alcohol Use Standard Drinks/Week Comments Yes 0 (1 standard drink = 0.6 oz pure alcohol) Occasionally I will have one drink - lately 1 per month [facility] Utilities Answer Date Recorded In the past 12 months has [facility] [employer], gas, oil, or water [employer] threatened to shut off services in your [...] your living situation today? I have a [facility] place to live 03/29/2024 Comments Unknown Sex and Gender Information Value Date Recorded Sex Assigned at Female 03/29/2024 8:07 PM MANAGER WOUND Legal Sex Female 11:57 AM CDT Gender Identity Female 03/29/2024 8:07 PM MANAGER WOUND Sexual Orientation Straight 03/29/2024 8: 07 PM MANAGER WOUND documented as of this encounter Medications at [...] (Latest Contact Info) Description 04/17/2024 3:00 PM MANAGER WOUND Hospital Encounter Division of Gastroenterology in [place], [place] [address] [place] [address] Juan Carlos Domingo M.B.BGailS. [address] [place] [address] documented as of this encounter Procedures Procedure Name Priority Date/Time Associated Diagnosis Comments NM GASTRIC EMPTYING WITH SB WITH COLONIC TRANSIT TIME 48 HR RAD - Routine (most inpatients and all outpatients) 04/07/2024 7:47 AM MANAGER WOUND Constipation documented in this encounter Results * NM Gastric Emptying with SB with Colonic Transit Time 48 hr (04/07/2024 7:47 AM MANAGER WOUND) Anatomical Region Laterality Modality Abdomen, Pelvis, Nuclear Med icine RST LOS, Nuclear Medicine ARZ LOS, Nuclear Medicine FLA LOS, Nuclear Medicine N/A Nuclear Medicine Impressions 04/07/2024 8:36 AM MANAGER WOUND 1. Gastric emptying is within normal limits. 2. Colonic transit is within normal limits. Narrative 04/07/2024 8:36 AM MANAGER WOUND EXAM: NM GASTRIC EMPTYING WITH SB WITH [...]
--- OUTSIDE RECORDS SUMMARY | 2024-04-17 09:55 | XMS_ITS | Clinical Summary ---
Author Organization [facility] Address [address] [place] [address] Care Team Providers Care Ship Purser Name Role Phone Unavailable Primary Care Provider Unavailabl e Source Comments Patient records contain information from all sites at [facility]. For routine questions regarding patient records, call [phone] during business hours, M-F 8:00 AM - 5:00 PM Central Time. Record requests for emergency care only can be directed to [phone] at any time.[facility] Allergies No known active allergies Medications LEVONORGESTREL UTRN by intrauterine route. 3 Active polyethylene glycol (Miralax) 17 gram/dose oral powder Take 4 g by mouth. 3 Active multivitamin tablet Take 1 tablet by mouth daily. Active saccharomyces boulardii (Florastor) 250 mg capsule Take 1 capsule by mouth 2 (two) times a day. Active polyethylene glycol-electrol ytes (Golytely) 236-22.74-6.74 -5.86 gram solution Take first portion of the prep at 4pm the evening before and start second portion 3 to 6 hours before and finish 2 hours prior to report time 4000 mL 4 Active Encounters Date Type Department Care Team Description 04/17/2024 3:00 PM FORESTRY TREE PRUNER Hospital Encounter Division of Gastroenterology in [place], [place] [address] [place] [phone] Juan Carlos Domingo M.B.B.S. 04/06/2024 6:45 AM FORESTRY TREE PRUNER - 04/06/2024 11:59 PM FORESTRY TREE PRUNER Hospital Encounter Department of Radiology, [facility], in [place], [place] [address] [place] [phone] Juan Carlos Domingo M.BGailB.S. Discharge Disposition: Home or Self Care 04/05/2024 6:45 AM FORESTRY TREE PRUNER - 04/05/2024 11:59 PM FORESTRY TREE PRUNER Hospital Encounter Department of Radiology, [facility], in [place], [place] [address] [place] [phone] Juan Carlos Doimngo M.B.B.S. Discharge Disposition: Home or Self Care 04/04/2024 2:11 PM FORESTRY TREE PRUNER - 04/04/2024 11:59 PM FORESTRY TREE PRUNER Hospital Encounter Department of Radiology, [facility], in [place], [place] [address] [place] [phone] Juan Carlos Domingo M.B.B.S. Discharge Disposition: Home or Self Care 04/04/2024 12:12 PM FORESTRY TREE PRUNER - 04/04/2024 2:10 PM FORESTRY TREE PRUNER Hospital Encounter Department of Radiology, [facility], in [place], [place] [address] [place] [phone] Juan Carlos Domingo M.B.B.S. Discharge Disposition: Home or Self Care 04/04/2024 10:08 AM FORESTRY TREE PRUNER - 04/04/2024 12:11 PM FORESTRY TREE PRUNER Hospital Encounter Department of Radiology, [facility], in [place], [place] [address] [place] [phone] Juan Carlos Domingo M.B.B.S. Discharge Disposition: Home or Self Care 04/04/2024 9:05 AM FORESTRY TREE PRUNER - 04/04/2024 10:07 AM FORESTRY TREE PRUNER Hospital Encounter Department of Radiology, [facility], in [place], [place] [address] [place] [address] Juan Carlos Domingo M.B.B.S. Discharge Disposition: Home or Self Care 04/04/2024 7:45 AM FORESTRY TREE PRUNER - 04/04/2024 9:04 AM FORESTRY TREE PRUNER Hospital Encounter Department of Radiology, [facility], in [place], [place] [address] [place] [phone] Juan Carlos Domingo M.B.B.S. Discharge Disposition: Home or Self Care 04/04/2024 6:44 AM FORESTRY TREE PRUNER - 04/04/2024 7:44 AM FORESTRY TREE PRUNER Hospital Encounter Department of Radiology, [facility] in [address] [phone] Juan Carlos Domingo M.B.BGailSGail Constipation Discharge Disposition: Home or Self Care 04/03/2024 1:50 PM FORESTRY TREE PRUNER - 04/03/2024 11:59 PM FORESTRY TREE PRUNER Hospital Encounter Division of Gastroenterology in [place], [place] [address] [place] [phone] Juan Carlos Domingo M.B.B.S. Constipation Discharge Disposition: Home or Self Care 04/03/2024 9:35 AM FORESTRY TREE PRUNER - 04/03/2024 1:49 PM FORESTRY TREE PRUNER Hospital Encounter Department of Laboratory Medicine and Pathology, [facility] in [address] [phone] Juan Carlos Domingo M.B.B.SGail Constipation Discharge Disposition: Home or Self Care 04/03/2024 8:00 AM FORESTRY TREE PRUNER Comprehensive Visit Division of Gastroenterology in [address] [phone] Juan Carlos Domingo M.B.B.SGail Constipation (Primary Dx) 04/03/2024 6:51 AM FORESTRY TREE PRUNER - 04/03/2024 9:34 AM FORESTRY TREE PRUNER Hospital Encounter Department of Radiology, [facility], in [place], [place] [address] [place] [phone] Juan Carlos Domingo M.B.B.S. Constipation Discharge Disposition: Home or Self Care 03/30/2024 9:30 AM FORESTRY TREE PRUNER Clinical Communication Virtual Review in [address] [phone] Pre-visit Intake 02/21/2024 Orders Only Division of Gastroenterology in [address] [phone] [facility], Provider, Constipation from Last 3 Months Family [...] one drink - lately 1 per month [employer] Answer Date Recorded In the past 12 months has [employer], oil, or water [employer] threatened to shut off services in your [...] your living situation today? I have a [facility] to live 03/29/2024 Comments Unknown Sex and Gender Information Value Date Recorded Sex Assigned at Female 03/29/2024 8:07 PM FORESTRY TREE PRUNER Legal Sex Female 11:57 AM CDT Gender Identity Female 03/29/2024 8:07 PM FORESTRY TREE PRUNER Sexual Orientation Straight 03/29/2024 8: 07 PM FORESTRY TREE PRUNER Last Filed Vital Signs Vital Sign Reading Time Taken Comments Blood Pressure 110/70 04/03/2024 8:03 AM FORESTRY TREE PRUNER Pulse 65 04/03/2024 8:03 AM FORESTRY TREE PRUNER Temperature - - Respiratory Rate - - Oxygen Saturation - - Inhaled Oxygen Concentration - - Weight 55.1 kg (121 lb 7.6 oz) 04/03/2024 8:03 A M FORESTRY TREE PRUNER Height 164.5 cm (5' 4.76) 04/03/2024 8:03 AM CS T Body Mass Index 20.36 04/03/2024 8:03 AM FORESTRY TREE PRUNER Plan of Treatment Upcoming Encounters Date Type Department Care Team (Latest Contact Info) Description 04/17/2024 3:00 PM FORESTRY TREE PRUNER Hospital Encounter Division of Gastroenterology in [place], [place] [address] [place] [address] Juan Carlos Domingo M.B.B.S. [address] [place] [address] Health Maintenance Due Date Last Done Comments HIV Screening 1988 Hepatitis C Screening 1988 Lipid (Cholesterol) Screening 1988 Hepatitis B Vaccines (1 of 3 - 19+ 3-dose series) 01/29/2007 Cervical/Vaginal Cancer Screening 02/15/2023 02/16/2020 Depression Screening (Annual PHQ-2) 05/10/2023 COVID-19 Vaccine ( season) 2024 06/30/2021, 09/26/2020, 08/29/2020 Influenza Vaccine (#1) 2024 2, 02/16/2020, 03/03/2019, Additional history exists DTaP,Tdap,and Td Vaccines (8 - Td or Tdap) 09/12/2029 09/13/2019, 10/02/2016, 10/22/2000, Additional history exists HPV Vaccines Aged Out No longer eligi ble based on patient's age to complete this topic IPV Vaccines Aged Out No longer eligi ble based on patient's age to complete this topic Pneumococcal vaccine (0-64 years) Aged Out No longer eligible based on patient's age to complete this topic Medical Devices Implanted Type Area Professor Of Surgery Device Identifier Shelf Expiration Date Model / Serial / Lot Intrauterine Device Intrauterine Device Uterus Procedures Procedure Name Priority Date/Time Associated Diagnosis Comments NM GASTRIC EMPTYING WITH SB WITH COLONIC TRANSIT TIME 48 HR RAD - Routine (most inpatients and all outpatients) 04/07/2024 7:47 AM FORESTRY TREE PRUNER Constipation ANORECTAL MANOMETRY Routine 04/04/2024 9 :29 AM FORESTRY TREE PRUNER Constipation TISSUE TRANSGLUTAMINASE (TTG) AB, IGA, S Routine 04/03/2024 9:50 AM FORESTRY TREE PRUNER CELIAC DISEASE COMPREHENSIVE CASCADE Routine 04/03/2024 9:50 AM FORESTRY TREE PRUNER Constipation THYROID FUNCTION CASCADE, S Routine 04/03/2024 9:50 AM FORESTRY TREE PRUNER Constipation DX ABDOMEN 1 VIEW RAD - Routine (most inpatients and all outpatients) 04/03/2024 7:25 AM FORESTRY TREE PRUNER Constipation from Last 3 Months Results * NM Gastric Emptying with SB with Colonic Transit Time 48 hr (04/07/2024 7:47 AM FORESTRY TREE PRUNER) Anatomical Region Laterality Modality Abdomen, Pelvis, Nuclear Med icine RST LOS, Nuclear Medicine ARZ LOS, Nuclear Medicine FLA LOS, Nuclear Medicine N/A Nuclear Medicine Impressions 04/07/2024 8:36 AM FORESTRY TREE PRUNER 1. Gastric emptying is within normal limits. 2. Colonic transit is within normal limits. Narrative 04/07/2024 8:36 AM FORESTRY TREE PRUNER EXAM: NM GASTRIC EMPTYING WITH SB WITH [...] transit is within normal limits. Juan Carlos Garcia.B.B.S. IMG NM PROCEDURES Final Result * Anorectal Manometry (04/04/2024 9:29 AM FORESTRY TREE PRUNER) Juan Carlos Garcia.B.B.S. GI PROCEDURE ORDERABLES Final Result Performing Organization Address City/[facility]/ZIP Co de Phone Number MMODAL NA * Thyroid Function [place] (04/03/2024 9:50 AM FORESTRY TREE PRUNER) Pathologist [facility] TSH, Sensitive 1.4 0.3 - 4.2 mIU/L 04/03/2024 10:57 AM FORESTRY TREE PRUNER DTL Blood (Blood, Venous) 04/03/2024 9:50 AM FORESTRY TREE PRUNER 04/03/2024 10:30 AM FORESTRY TREE PRUNER Juan Carlos Domingo M.B.B.S. LAB BLOOD ADD-ON Final Result [facility] [address] [place] [address], [facility] DTL [facility] [address] [place] [address] * Celiac Disease Comprehensive [place] (04/03/2024 9:50 AM FORESTRY TREE PRUNER) Pathologist [facility] HLA-DQA1 Locus Molecular 01, 01:02 Not Applicable 04/05/2024 2:48 PM FORESTRY TREE PRUNER DBB8 HLA-DQB1 Locus Molecular 05, 06:02 Not Applicable 04/05/2024 2:48 PM FORESTRY TREE PRUNER DBB8 Comment: DQ Serologic Equivalent: 5, 6 Celiac Gene Pairs Present? No 04/05/2024 2:48 PM FORESTRY TREE PRUNER DBB8 Comment: Method: Molecular typing of HLA antigens performed using reverse SSOP and/or sequencing methods, reported as serological equivalents and low to intermediate resolution molecular values. For convenience, when not defined in the WHO Nomenclature a laboratory defined serologic equivalent has been provided. Based on the catalog of common, intermediate, and well-documented alleles in the world population(CIWD 3.0 Hortensia SHARP et.al, HLA. 2020:516-531), certain intermediate or common alleles in some ethnicities may not be resolved. Kindly contact laboratory if ethnic specific resolution is required. This test has been modified from the manufacturers instructions. Its performance characteristics were determined by [facility] in a manner consistent with CLIA requirements. This test has not been cleared or approved by the U.S. Food and Drug Administration. CLIA: [id number] CLIA Coordinator Cardiopulmonary Services: ALTAGRACIA ZARATE,Ph.D. A portion of the testing process was performed at [facility] site [id number] Immunoglobulin A (IgA), S 213 61 - 356 mg/dL 04/03/2024 6:12 PM [facility] Celiac Disease Interpretation See Comment: Permissive genes absent and negative serology. Celiac disease extremely unlikely. 04/05/2024 10:53 PM FORESTRY TREE PRUNER [facility] Blood (Blood, Venous) 04/03/2024 9:50 AM FORESTRY TREE PRUNER 04/03/2024 10:21 AM FORESTRY TREE PRUNER Narrative [facility] - 04/05/2024 10:53 PM FORESTRY TREE PRUNER Specimen Information: Specimen ID: [id number] Specimen Type: Blood Specimen Collection Start Date: 04/03/2024 9:50 AM Specimen Received Date: 04/03/2024 10:21 AM Specimen ID: [id number] Specimen Type: Blood Specimen Collection Start Date: 04/03/2024 9:50 AM Specimen Received Date: 04/03/2024 12:40 PM Specimen ID: [id number] Specimen Type: Blood Specimen Collection Start Date: 04/03/2024 9:50 AM Specimen Received Date: 04/03/2024 5:58 PM Juan Carlos C Jose L M.B.B.S. LAB BLOOD NON ADD-ON Fi nal Result Performing Organization Address [facility] Co de Phone Number [facility] [address] [place] [address] DBB8 [facility] [address] [place] [address] [facility] [address] [place] [address] [facility] [address] [place] [address] [place] [address] * tTG (Tissue Transglutaminase), Antibody, IgA (04/03/2024 9:50 AM FORESTRY TREE PRUNER) Tissue Transglutaminase Ab, IgA, S <1.2 <4.0 (Negative ) U/mL 04/04/2024 10:25 AM FORESTRY TREE PRUNER [facility] Blood 04/03/2024 9:50 AM FORESTRY TREE PRUNER 04/03/2024 6:13 PM FORESTRY TREE PRUNER us Juan Carlos TimB.S. LAB BLOOD ADD-ON Final Result Performing Organization Address [facility] Co de Phone Number [facility] [address] [place] [address] [facility] [address] [place] [address] * DX Abdomen 1 View (04/03/2024 7:25 AM FORESTRY TREE PRUNER) Anatomical Region Laterality Modality Abdomen, Abdominal RST LOS, Abdominal ARZ LOS, Abdominal FLA LOS N/A Digital Radiography Impressions 04/03/2024 7:27 AM FORESTRY TREE PRUNER Nonobstructive bowel gas pattern with moderate colonic stool burden. IUD within the pelvis. Narrative 04/03/2024 7:27 AM FORESTRY TREE PRUNER EXAM: DX ABDOMEN 1 VIEW Procedure Note Edith Macias M.D. - 04/03/2024 EXAM: DX ABDOMEN 1 VIEW IMPRESSION: Nonobstructive bowel gas pattern with moderate colonic stool burden. IUDwithin the pelvis. us Juan Carlos TimBGailS. IMG DIAGNOSTIC IMAGING PROCEDURES Final Result from Last 3 Months Insurance [email or web address]
--- OUTSIDE RECORDS SUMMARY | 2024-04-17 09:55 | XMS_ITS | Referral Summary ---
Author Organization [facility] Address [address] [place] [address] Care Team Providers Care Substation Technician Name Role Phone Unavailable Primary Care Provider Unavailabl e Source Comments Patient records contain information from all sites at [facility]. For routine questions regarding patient records, call [phone] during business hours, M-F 8:00 AM - 5:00 PM Central Time. Record requests for emergency care only can be directed to [phone] at any time.[facility] Encounters Date Type Department Care Team Description 04/17/2024 3:00 PM BEATER OPERATOR Hospital Encounter Division of Gastroenterology in [place], [place] [address] [place] [phone] Juan Carlos Domingo M.B.B.S. 04/06/2024 6:45 AM BEATER OPERATOR - 04/06/2024 11:59 PM BEATER OPERATOR Hospital Encounter Department of Radiology, [place], [place] [address] [place] [address] Juan Carlos Domingo M.B.B.S. Discharge Disposition: Home or Self Care 04/05/2024 6:45 AM BEATER OPERATOR - 04/05/2024 11:59 PM BEATER OPERATOR Hospital Encounter Department of Radiology, [place], [place] [address] [place] [phone] Juan Carlos Domingo M.B.B.S. Discharge Disposition: Home or Self Care 04/04/2024 2:11 PM BEATER OPERATOR - 04/04/2024 11:59 PM BEATER OPERATOR Hospital Encounter Department of Radiology, [facility], in [place], [place] [address] [place] [address] Juan Carlos Domingo M.B.B.SGail Discharge Disposition: Home or Self Care 04/04/2024 12:12 PM BEATER OPERATOR - 04/04/2024 2:10 PM BEATER OPERATOR Hospital Encounter Department of Radiology, [facility], in [place], [place] [address] [place] [phone] Juan Carlos Domingo M.B.B.S. Discharge Disposition: Home or Self Care 04/04/2024 10:08 AM BEATER OPERATOR - 04/04/2024 12:11 PM BEATER OPERATOR Hospital Encounter Department of Radiology, [facility] in [place], [place] [address] [place] [phone] Juan Carlos Domingo M.B.B.S. Discharge Disposition: Home or Self Care 04/04/2024 9:05 AM BEATER OPERATOR - 04/04/2024 10:07 AM BEATER OPERATOR Hospital Encounter Department of Radiology, [facility], in [place], [place] [address] [place] [phone] Juan Carlos Domingo M.B.B.SGail Discharge Disposition: Home or Self Care 04/04/2024 7:45 AM BEATER OPERATOR - 04/04/2024 9:04 AM BEATER OPERATOR Hospital Encounter Department of Radiology, [facility] in [place], [place] [address] [place] [phone] Juan Carlos Domingo M.B.B.S. Discharge Disposition: Home or Self Care 04/04/2024 6:44 AM BEATER OPERATOR - 04/04/2024 7:44 AM BEATER OPERATOR Hospital Encounter Department of Radiology, [facility], [place], [place] [address] [place] [phone] Juan Carlos Domingo M.B.B.SGail Constipation Discharge Disposition: Home or Self Care 04/03/2024 9:35 AM BEATER OPERATOR - 04/03/2024 1:49 PM BEATER OPERATOR [facility] [place] [place] [address] [place] [phone] Juan Carlos Domingo M.B.B.SGail Constipation Discharge Disposition: Home or Self Care 04/03/2024 1:50 PM BEATER OPERATOR - 04/03/2024 11:59 PM BEATER OPERATOR Hospital Encounter Division of Gastroenterology in [address] [phone] Juan Carlos Domingo M.B.B.S. Constipation Discharge Disposition: Home or Self Care 04/03/2024 6:51 AM BEATER OPERATOR - 04/03/2024 9:34 AM BEATER OPERATOR Hospital Encounter Department of Radiology, [facility], in [address] [phone] Juan Carlos Domingo M.B.B.S. Constipation Discharge Disposition: Home or Self Care 04/03/2024 8:00 AM BEATER OPERATOR Comprehensive Visit Division of Gastroenterology in [address] [phone] Juan Carlos Domingo M.B.B.S. Constipation (Primary Dx) 03/30/2024 9:30 AM [facility] Clinical Communication Virtual Review in [place], [place] 200 [place] [address] Pre-visit Intake 02/21/2024 Orders Only Division of Gastroenterology in [address] [phone] [facility], ProviderMD Constipation from Last 3 Months Allergies No [...] to report time 4000 mL 4 Active Social History Tobacco Use Types Packs/Day Years Used Date Smoking Tobacco: Never Passive Smoke Exposure: Never Smokeless Tobacco: Never Tobacco Cessation:Counseling Given: Not Answered Alcohol Use Standard Drinks/Week Comments Yes 0 (1 standard drink = 0.6 oz pure alcohol) Occasionally I will have one drink - lately 1 per month [facility] Utilities Answer Date Recorded In the past 12 months has th e [employer], gas, oil, or water company threatened to shut off services in your [...] your living situation today? I have a [facility] place to live 03/29/2024 Comments Unknown Sex and Gender Information Value Date Recorded Sex Assigned at Female 03/29/2024 8:07 PM BEATER OPERATOR Legal Sex Female 11:57 AM CDT Gender Identity Female 03/29/2024 8:07 PM BEATER OPERATOR Sexual Orientation Straight 03/29/2024 8: 07 PM BEATER OPERATOR Last Filed Vital Signs Vital Sign Reading Time Taken Comments Blood Pressure 110/70 04/03/2024 8:03 AM BEATER OPERATOR Pulse 65 04/03/2024 8:03 AM BEATER OPERATOR Temperature - - Respiratory Rate - - Oxygen Saturation - - Inhaled Oxygen Concentration - - Weight 55.1 kg (121 lb 7.6 oz) 04/03/2024 8:03 A M BEATER OPERATOR Height 164.5 cm (5' 4.76) 04/03/2024 8:03 AM CS T Body Mass Index 20.36 04/03/2024 8:03 AM BEATER OPERATOR Plan of Treatment Upcoming Encounters Date Type Department Care Team (Latest Contact Info) Description 04/17/2024 3:00 PM BEATER OPERATOR Hospital Encounter Division of Gastroenterology in [place], [place] [address] [place] [address] Juan Carlos Domingo M.B.B.S. [address] [place] [address] Medical Devices Implanted Type Area Game Bird Farmer Device Identifier Shelf Expiration Date Model / Serial / Lot Intrauterine Device Intrauterine Device Uterus Procedures Procedure Name Priority Date/Time Associated Diagnosis Comments NM GASTRIC EMPTYING WITH SB WITH COLONIC TRANSIT TIME 48 HR RAD - Routine (most inpatients and all outpatients) 04/07/2024 7:47 AM BEATER OPERATOR Constipation ANORECTAL MANOMETRY Routine 04/04/2024 9 :29 AM BEATER OPERATOR Constipation TISSUE TRANSGLUTAMINASE (TTG) AB, IGA, S Routine 04/03/2024 9:50 AM BEATER OPERATOR CELIAC DISEASE COMPREHENSIVE CASCADE Routine 04/03/2024 9:50 AM BEATER OPERATOR Constipation THYROID FUNCTION CASCADE, S Routine 04/03/2024 9:50 AM BEATER OPERATOR Constipation DX ABDOMEN 1 VIEW RAD - Routine (most inpatients and all outpatients) 04/03/2024 7:25 AM BEATER OPERATOR Constipation from Last 3 Months Results * NM Gastric Emptying with SB with Colonic Transit Time 48 hr (04/07/2024 7:47 AM BEATER OPERATOR) Anatomical Region Laterality Modality Abdomen, Pelvis, Nuclear Med icine RST LOS, Nuclear Medicine ARZ LOS, Nuclear Medicine FLA LOS, Nuclear Medicine N/A Nuclear Medicine Impressions 04/07/2024 8:36 AM BEATER OPERATOR 1. Gastric emptying is within normal limits. 2. Colonic transit is within normal limits. Narrative 04/07/2024 8:36 AM BEATER OPERATOR EXAM: NM GASTRIC EMPTYING WITH SB [...] transit is within normal limits. Juan Carlos Domingo M.B.B.S. IMG NM PROCEDURES Final Result * Anorectal Manometry (04/04/2024 9:29 AM BEATER OPERATOR) us Juan Carlos Domingo M.B.B.S. GI PROCEDURE ORDERABLES Final Result Performing Organization Address City/[facility]/ZIP Co de Phone Number MMODAL NA * Thyroid Function Henry (04/03/2024 9:50 AM BEATER OPERATOR) [facility] TSH, Sensitive 1.4 0.3 - 4.2 mIU/L 04/03/2024 10:57 AM BEATER OPERATOR DTL Blood (Blood, Venous) 04/03/2024 9:50 AM BEATER OPERATOR 04/03/2024 10:30 AM BEATER OPERATOR Juan Carlos Domingo M.B.B.S. LAB BLOOD ADD-ON Final Result [facility] [address] [place] [address], [facility] DTL [facility] [address] [place] [address] * Celiac Disease Comprehensive Henry (04/03/2024 9:50 AM BEATER OPERATOR) HLA-DQA1 Locus Molecular 01, 01:02 Not Applicable 04/05/2024 2:48 PM BEATER OPERATOR DBB8 HLA-DQB1 Locus Molecular 05, 06:02 Not Applicable 04/05/2024 2:48 PM BEATER OPERATOR DBB8 Comment: DQ Serologic Equivalent: 5, 6 Celiac Gene Pairs Present? No 04/05/2024 2:48 PM BEATER OPERATOR DBB8 Comment: Method: Molecular typing of HLA [...] instructions. Its performance characteristics were determined by [facility] in a manner consistent with CLIA requirements. This test has not been cleared or approved by the U.S. Food and Drug Administration. CLIA: [id number] CLIA Residential Aide: ALTAGRACIA ZARATE,Ph.D. A portion of the testing process was performed at [facility] Laboratories site [id number] Immunoglobulin A (IgA), S 213 61 - 356 mg/dL 04/03/2024 6:12 PM [facility] Celiac Disease Interpretation See Comment: Permissive genes absent and negative serology. Celiac disease extremely unlikely. 04/05/2024 10:53 PM [facility] Blood (Blood, Venous) 04/03/2024 9:50 AM BEATER OPERATOR 04/03/2024 10:21 AM BEATER OPERATOR Narrative [facility] - 04/05/2024 10:53 PM BEATER OPERATOR Specimen Information: Specimen ID: [id number] Specimen Type: Blood Specimen Collection Start Date: 04/03/2024 9:50 AM Specimen Received Date: 04/03/2024 10:21 AM Specimen ID: [id number] Specimen Type: Blood Specimen Collection Start Date: 04/03/2024 9:50 AM Specimen Received Date: 04/03/2024 12:40 PM Specimen ID: [id number] Specimen Type: Blood Specimen Collection Start Date: 04/03/2024 9:50 AM Specimen Received Date: 04/03/2024 5:58 PM Juan Carlos TimB.S. LAB BLOOD NON ADD-ON Fi nal Result Performing Organization Address [facility] Co de Phone Number [facility] [address] [place] [address] [id number] [facility] [address] [place] [address] [facility] [address] [place] [address] [facility] [address] [place] [address] [address] [place] [place] [address] * tTG (Tissue Transglutaminase), Antibody, IgA (04/03/2024 9:50 AM BEATER OPERATOR) Tissue Transglutaminase Ab, IgA, S <1.2 <4.0 (Negative ) U/mL 04/04/2024 10:25 AM BEATER OPERATOR [facility] Blood 04/03/2024 9:50 AM BEATER OPERATOR 04/03/2024 6:13 PM BEATER OPERATOR Juan Carlos TimB.S. LAB BLOOD ADD-ON Final Result Performing Organization Address [facility] Co de Phone Number [facility] [address] [place] [address] [facility] [address] [place] [address] * DX Abdomen 1 View (04/03/2024 7:25 AM BEATER OPERATOR) Anatomical Region Laterality Modality Abdomen, Abdominal RST LOS, Abdominal ARZ LOS, Abdominal FLA LOS N/A Digital Radiography Impressions 04/03/2024 7:27 AM BEATER OPERATOR Nonobstructive bowel gas pattern with moderate colonic stool burden. IUD within the pelvis. Narrative 04/03/2024 7:27 AM BEATER OPERATOR EXAM: DX ABDOMEN 1 VIEW Procedure Note Edith Macias M.D. - 04/03/2024 EXAM: DX ABDOMEN 1 VIEW IMPRESSION: Nonobstructive bowel gas pattern with moderate colonic stool burden. IUDwithin the pelvis. Juan Carlos Camacho IMG DIAGNOSTIC IMAGING PROCEDURES Final Result from Last 3 Months [facility]
--- OUTSIDE RECORDS SUMMARY | 2024-04-17 09:55 | XMS_ITS | Encounter Summary ---
Author Organization [facility] Address [address] [place] [address] Care Team Providers Care Dancer Or Choreographer Name Role Phone Unavailable Primary Care Provider Unavailabl e Reason for Visit * Outpatient (Routine) - Authorized Specialty Diagnoses / Procedures Referred By Pino brush Referred To Contact Diagnoses Constipation Procedures Colonoscopy Juan Carlos Domingo M.B.B.S. [address] [place] [phone] Phone: tel: fax: [facility] Referral ID Status Reason Start Date Expiration Date V isits Requested Visits Authorized [id number] Authorized 04/03/2024 04/03/2025 1 1 Encounter Details Date Type Department Care Team (Latest Contact Info) Description 04/17/2024 3:00 PM [facility] Hospital Encounter Division of Gastroenterology in [place], [place] [address] [place] [phone] Juan Carlos Domingo M.B.B.S. [address] [place] [phone] Social History Tobacco Use Types Packs/Day Years Used Date Smoking Tobacco: Never Passive Smoke Exposure: Never Smokeless Tobacco: Never Alcohol Use Standard Drinks/Week Comments Yes 0 (1 standard drink = 0.6 oz pure alcohol) Occasionally I will have one drink - lately 1 per month [facility] Utilities Answer Date Recorded In the past 12 months has e [employer], gas, oil, or water [employer] threatened to shut off services in your [...] your living situation today? I have a [facility] place to live 03/29/2024 Comments Unknown Sex and Gender Information Value Date Recorded Sex Assigned at Female 03/29/2024 8:07 PM MINER OPERATOR Legal Sex Female 11:57 AM CDT Gender Identity Female 03/29/2024 8:07 PM MINER OPERATOR Sexual Orientation Straight 03/29/2024 8: 07 PM MINER OPERATOR documented as of this encounter Plan of Treatment Scheduled Orders Name Type Priority Associated Diagnoses Orde r Schedule Colonoscopy GI Routine Constipation Expected: 04/03/2024, Expires: 07/04/2025 documented as of this encounter Visit Diagnoses Not on filedocumented in this encounter
--- OUTSIDE RECORDS SUMMARY | 2024-04-17 09:55 | XMS_ITS | Encounter Summary ---
Author Organization [facility] Address [address] [place] [address] Care Team Providers Care Sales Merchandising Specialist Name Role Phone Unavailable Primary Care Provider Unavailabl e Reason for Visit * Outpatient (Routine) - Closed Specialty Diagnoses / Procedures Referred By Pino t Referred To Contact Diagnoses Constipation Procedures NM Gastric Emptying with SB with Colonic Transit Time 48 hr Juan Carlos Domingo M.B.B.S. 200 [place] [address] Phone: tel: fax: [facility] Referral ID Status Reason Start Date Expiration Date Visits Re quested Visits Authorized [id number] Closed 02/21/2024 02/20/2025 8 8 Encounter Details Date Type Department Care Team (Latest Contact Info) Description 04/05/2024 6:45 AM LPN MEDICAL ASSISTANT - 04/05/2024 11:59 PM [facility] Hospital Encounter Department of Radiology, [facility], in [place], [place] [address] [place] [address] Juan Carlos Domingo M.B.B.S. 200 [place] [phone] Discharge Disposition: Home or Self Care Social History Tobacco Use Types Packs/Day Years Used Date Smoking Tobacco: Never Passive Smoke Exposure: Never Smokeless Tobacco: Never Alcohol Use Standard Drinks/Week Comments Yes 0 (1 standard drink = 0.6 oz pure alcohol) Occasionally I will have one drink - lately 1 per month [facility] Utilities Answer Date Recorded In the past 12 months has [facility] [employer], gas, oil, or water [employer] threatened to shut off services in your [...] your living situation today? I have a [facility] place to live 03/29/2024 Comments Unknown Sex and Gender Information Value Date Recorded Sex Assigned at Female 03/29/2024 8:07 PM LPN MEDICAL ASSISTANT Legal Sex Female 11:57 AM CDT Gender Identity Female 03/29/2024 8:07 PM LPN MEDICAL ASSISTANT Sexual Orientation Straight 03/29/2024 8: 07 PM LPN MEDICAL ASSISTANT documented as of this encounter Medications at [...] (Latest Contact Info) Description 04/17/2024 3:00 PM LPN MEDICAL ASSISTANT Hospital Encounter Division of Gastroenterology in [place], [place] [address] [place] [address] Juan Carlos Domingo M.B.BGailS. [address] [place] [address] documented as of this encounter Procedures Procedure Name Priority Date/Time Associated Diagnosis Comments NM GASTRIC EMPTYING WITH SB WITH COLONIC TRANSIT TIME 48 HR RAD - Routine (most inpatients and all outpatients) 04/07/2024 7:47 AM LPN MEDICAL ASSISTANT Constipation documented in this encounter Results * NM Gastric Emptying with SB with Colonic Transit Time 48 hr (04/07/2024 7:47 AM LPN MEDICAL ASSISTANT) Anatomical Region Laterality Modality Abdomen, Pelvis, Nuclear Med icine RST LOS, Nuclear Medicine ARZ LOS, Nuclear Medicine FLA LOS, Nuclear Medicine N/A Nuclear Medicine Impressions 04/07/2024 8:36 AM LPN MEDICAL ASSISTANT 1. Gastric emptying is within normal limits. 2. Colonic transit is within normal limits. Narrative 04/07/2024 8:36 AM LPN MEDICAL ASSISTANT EXAM: NM GASTRIC EMPTYING WITH SB WITH [...]
--- OUTSIDE RECORDS SUMMARY | 2024-04-17 09:55 | XMS_ITS ---
Author Organization [facility] Address [address] [place] [address] Care Team Providers Care Breast Puller Name Role Phone Unavailable Unavailable Unavailable Surgery Details Not on file Complications Check Surgery Details section. Procedure Estimated Blood Loss Check Surgery Details section. Procedure Findings Check Surgery Details section. Procedure Specimens Taken Check Surgery Details section.
--- OUTSIDE RECORDS SUMMARY | 2024-04-17 09:56 | XMS_ITS | Encounter Summary ---
Author Organization [facility] Address [address] [place] [address] Care Team Providers Care Machine Learning Intern Name Role Phone Unavailable Primary Care Provider Unavailabl e Reason for Referral * Outpatient (Routine) - Closed Specialty Diagnoses / Procedures Referred By Pino t Referred To Contact Diagnoses Constipation Procedures DX Abdomen 1 View Juan Carlos Domingo M.B.B.S. [address] [place] [phone] Phone: tel: fax: [facility] Referral ID Status Reason Start Date Expiration Date Visits Re quested Visits Authorized [id number] Closed 02/21/2024 02/20/2025 1 1 CY SERVICE COORDINATOR Reason for Visit * Outpatient (Routine) - Closed Specialty Diagnoses / Procedures Referred By Pino brush Referred To Contact Diagnoses Constipation Procedures DX Abdomen 1 View Juan Carlos Domingo M.B.B.S. [address] [place] [phone] Phone: tel: fax: [facility] Referral ID Status Reason Start Date Expiration Date Visits Re quested Visits Authorized [id number] Closed 02/21/2024 02/20/2025 1 1 Encounter Details Date Type Department Care Team (Latest Contact Info) Description 04/03/2024 6:51 AM AGENCY SERVICE COORDINATOR - 04/03/2024 9:34 AM AGENCY SERVICE COORDINATOR Hospital Encounter Department of Radiology, [facility], in [place], [place] [address] [place] [phone] Juan Carlos Domingo M.B.BGailS. [address] [place] [address] Constipation Discharge Disposition: Home or Self Care Social History Tobacco Use Types Packs/Day Years Used Date Smoking Tobacco: Never Passive Smoke Exposure: Never Smokeless Tobacco: Never Alcohol Use Standard Drinks/Week Comments Yes 0 (1 standard drink = 0.6 oz pure alcohol) Occasionally I will have one drink - lately 1 per month [facility] Utilities Answer Date Recorded In the past 12 months has th e [employer], gas, oil, or water [employer] threatened to shut off services in your [...] your living situation today? I have a [facility] place to live 03/29/2024 Comments Unknown Sex and Gender Information Value Date Recorded Sex Assigned at Female 03/29/2024 8:07 PM AGENCY SERVICE COORDINATOR Legal Sex Female 11:57 AM CDT Gender Identity Female 03/29/2024 8:07 PM AGENCY SERVICE COORDINATOR Sexual Orientation Straight 03/29/2024 8: 07 PM AGENCY SERVICE COORDINATOR documented as of this encounter Medications at [...] (Latest Contact Info) Description 04/17/2024 3:00 PM AGENCY SERVICE COORDINATOR Hospital Encounter Division of Gastroenterology in [place], [place] [address] [place] [address] Juan Carlos Domingo M.B.B.S. [address] [place] [address] documented as of this encounter Procedures Procedure Name Priority Date/Time Associated Diagnosis Comments DX ABDOMEN 1 VIEW RAD - Routine (most inpatients and all outpatients) 04/03/2024 7:25 AM AGENCY SERVICE COORDINATOR Constipation documented in this encounter Results * DX Abdomen 1 View (04/03/2024 7:25 AM AGENCY SERVICE COORDINATOR) Anatomical Region Laterality Modality Abdomen, Abdominal RST LOS, Abdominal ARZ LOS, Abdominal FLA LOS N/A Digital Radiography Impressions 04/03/2024 7:27 AM AGENCY SERVICE COORDINATOR Nonobstructive bowel gas pattern with moderate colonic stool burden. IUD within the pelvis. Narrative 04/03/2024 7:27 AM AGENCY SERVICE COORDINATOR EXAM: DX ABDOMEN 1 VIEW Procedure Note Edith Macias M.D. - 04/03/2024 EXAM: DX ABDOMEN 1 VIEW IMPRESSION: Nonobstructive bowel gas pattern with moderate colonic stool burden. IUDwithin the pelvis. Juan Carlos Camacho IMG DIAGNOSTIC IMAGING PROCEDURES Final Result documented in this encounter Visit Diagnoses Diagnosis Constipation documented in this encounter
--- OUTSIDE RECORDS SUMMARY | 2024-04-17 09:56 | XMS_ITS | Clinical Summary ---
Author Organization [facility] Address [address] [place] [address] Phone [email or web address] Care Team Providers Care Dialysis Technician Name Role Phone None, At This Time Primary Care Provider Unavail able Allergies No known active allergies Medications No known medications Active Problems No known active problems Encounters Date Type Department Care Team Description 03/22/2024 Claims Summary [facility] [address] [phone] Provider, Claims Summary MD Srinivas 02/17/2024 Claims Summary [facility] [address] [phone] Provider, Claims Summary MD Srinivas 01/19/2024 Claims Summary [facility] [address] [phone] Provider, Claims Summary MD Srinivas from Last [...] on file Legal Sex Female 12:50 PM GEAR NICKER Gender Identity Not on file Sexual Orientation [...] patient's age to complete this topic Insurance SourceMedical NO COPAY NB Care Teams Dialysis Technician Relationship Specialty Start Date End Date None, [place] [address] PCP - General Family Medicine 11/05/23
--- OUTSIDE RECORDS SUMMARY | 2024-04-17 09:56 | XMS_ITS | Encounter Summary ---
Author Organization [facility] Address [address] [place] [address] Care Team Providers Care Casino Change Attendant Name Role Phone Unavailable Primary Care Provider Unavailabl e Reason for Visit * Outpatient (Routine) - Closed Specialty Diagnoses / Procedures Referred By Pino t Referred To Contact Diagnoses Constipation Procedures NM Gastric Emptying with SB with Colonic Transit Time 48 hr Juan Carlos Domingo M.B.B.S. 200 [place] [address] Phone: tel: fax: [facility] Referral ID Status Reason Start Date Expiration Date Visits Re quested Visits Authorized [id number] Closed 02/21/2024 02/20/2025 8 8 Encounter Details Date Type Department Care Team (Latest Contact Info) Description 04/04/2024 7:45 AM [facility] - 04/04/2024 9:04 AM [facility] Hospital Encounter Department of Radiology, [facility], in [place], [place] [address] [place] [address] Juan Carlos Domingo M.B.B.S. 200 [place] [phone] Discharge Disposition: Home or Self Care Social History Tobacco Use Types Packs/Day Years Used Date Smoking Tobacco: Never Passive Smoke Exposure: Never Smokeless Tobacco: Never Alcohol Use Standard Drinks/Week Comments Yes 0 (1 standard drink = 0.6 oz pure alcohol) Occasionally I will have one drink - lately 1 per month [facility] Utilities Answer Date Recorded In the past 12 months has [facility] [employer], gas, oil, or water [employer] threatened to shut off services in your [...] your living situation today? I have a [facility] place to live 03/29/2024 Comments Unknown Sex and Gender Information Value Date Recorded Sex Assigned at Female 03/29/2024 8:07 PM PALM GATHERER Legal Sex Female 11:57 AM CDT Gender Identity Female 03/29/2024 8:07 PM PALM GATHERER Sexual Orientation Straight 03/29/2024 8: 07 PM PALM GATHERER documented as of this encounter Medications at [...] (Latest Contact Info) Description 04/17/2024 3:00 PM PALM GATHERER Hospital Encounter Division of Gastroenterology in [place], [place] [address] [place] [address] Juan Carlos Domingo M.B.BGailS. [address] [place] [address] documented as of this encounter Procedures Procedure Name Priority Date/Time Associated Diagnosis Comments NM GASTRIC EMPTYING WITH SB WITH COLONIC TRANSIT TIME 48 HR RAD - Routine (most inpatients and all outpatients) 04/07/2024 7:47 AM PALM GATHERER Constipation documented in this encounter Visit Diagnoses Not on filedocumented in this encounter Administered Medications Inactive Administered Medications - up to 3 most recent administrations Medication Order MAR Action Action Date Dose Rate Site indium In 111 charcoal capsule (In-111 Charcoal Capsule) 0.08-0.12 millicurie, oral, Once, On Wed04/04/24 at 0815, For 1 dose, Imaging Protocol Orders Given 04/04/2024 7:00 AM PALM GATHERER 0.104 millicuries technetium Tc 99m Sulfur Colloid solution (Tc-99m Sulfur Colloid) 0.27-1.1 millicurie, oral, Once, On Wed04/04/24 at 0815, For 1 dose, Imaging Protocol Orders Given 04/04/2024 7:59 AM PALM GATHERER 1.048 millicuries documented in this encounter
--- OUTSIDE RECORDS SUMMARY | 2024-04-17 09:56 | XMS_ITS | Encounter Summary ---
Author Organization [facility] Address [address] [place] [address] Phone [email or web address] Care Team Providers Care Business Services Sales Representative Name Role Phone None, At This Time Primary Care Provider Unavail able Encounter Details Date Type Department Care Team (Late st Contact Info) Description 02/17/2024 Claims Summary [facility] [address] [place] [address] Provider, Claims Summary External, [address] [place], [place] [id number] Social History Tobacco Use Types Packs/Day Years Used Date Smoking Tobacco: Never Smokeless Tobacco: Never Alcohol Use Standard Drinks/Week Comments Not Currently 1 (1 standard drink = 0.6 oz pur e alcohol) Alcohol Use Answer Date Recorded Alcohol Use Status Not Currently 11/05/2023 Comments Unknown Sex and Gender Information Value Date Recorded Sex Assigned at Not on file 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
--- OUTSIDE RECORDS SUMMARY | 2024-04-17 09:56 | XMS_ITS | Encounter Summary ---
Author Organization [facility] Address [address] [place] [address] Care Team Providers Care Line Cook Name Role Phone Unavailable Primary Care Provider Unavailabl e Reason for Referral * Outpatient (Routine) - Closed Specialty Diagnoses / Procedures Referred By Contac t Referred To Contact Diagnoses Constipation Procedures DX Abdomen 1 View Juan Carlos Domingo M.B.B.S. [address] [place] [phone] Phone: tel: fax: [facility] Referral ID Status Reason Start Date Expiration Date Visits Re quested Visits Authorized [id number] Closed 02/21/2024 02/20/2025 1 1 * Outpatient (Routine) - Closed Specialty Diagnoses / Procedures Referred By Contac t Referred To Contact Diagnoses Constipation Procedures Anorectal Manometry Juan Carlos Domingo M.B.B.S. 200 [place] [address] Phone: tel: fax: [facility] Referral ID Status Reason Start Date Expiration Date Visits Re quested Visits Authorized [id number] Closed 02/21/2024 02/20/2025 1 1 * Outpatient (Routine) - Closed Specialty Diagnoses / Procedures Referred By Contac t Referred To Contact Diagnoses Constipation Procedures NM Gastric Emptying with SB with Colonic Transit Time 48 hr Juan Carlos Domingo M.B.B.S. [address] [place] [phone] Phone: tel: fax: [facility] Referral ID Status Reason Start Date Expiration Date Visits Re quested Visits Authorized [id number] Closed 02/21/2024 02/20/2025 8 8 Encounter Details Date Type Department Care Team (Late st Contact Info) Description 02/21/2024 Orders Only Division of Gastroenterology in [place], [place] [address] [place] [phone] [facility], ProviderMD Constipation Social History Tobacco Use Types Packs/Day Years Used Date Smoking Tobacco: Never Assessed Dental Answer Date Recorded Dental: Regular Dentist Unknown 02/21/20 24 Comments Unknown Sex and Gender Information Value Date Recorded Sex Assigned at Female 03/29/2024 8:07 PM SLAB OFF MILL TENDER Legal Sex Female 11:57 AM CDT Gender Identity Female 03/29/2024 8:07 PM SLAB OFF MILL TENDER Sexual Orientation Straight 03/29/2024 8: 07 PM SLAB OFF MILL TENDER documented as of this encounter Plan of Treatment Upcoming Encounters Date Type Department Care Team (Latest Contact Info) Description 04/17/2024 3:00 PM SLAB OFF MILL TENDER Hospital Encounter Division of Gastroenterology in [place], [place] [address] [place] [phone] Juan Carlos Domingo M.B.B.S. [address] [place] [phone] documented as of this encounter Results * NM Gastric Emptying with SB with Colonic Transit Time 48 hr (04/07/2024 7:47 AM SLAB OFF MILL TENDER) Anatomical Region Laterality Modality Abdomen, Pelvis, Nuclear Med icine RST LOS, Nuclear Medicine ARZ LOS, Nuclear Medicine FLA LOS, Nuclear Medicine N/A Nuclear Medicine Impressions 04/07/2024 8:36 AM SLAB OFF MILL TENDER 1. Gastric emptying is within normal limits. 2. Colonic transit is within normal limits. Narrative 04/07/2024 8:36 AM SLAB OFF MILL TENDER EXAM: NM GASTRIC EMPTYING WITH SB WITH [...] 2. Colonic transit is within normal limits. us Juan Carlos Love.B.S. IMG NM PROCEDURES Final Result * Anorectal Manometry (04/04/2024 9:29 AM SLAB OFF MILL TENDER) us Juan Carlos Garcia.B.B.S. GI PROCEDURE ORDERABLES Final Result MMODAL NA * DX Abdomen 1 View (04/03/2024 7:25 AM SLAB OFF MILL TENDER) Anatomical Region Laterality Modality Abdomen, Abdominal RST LOS, Abdominal ARZ LOS, Abdominal FLA LOS N/A Digital Radiography Impressions 04/03/2024 7:27 AM SLAB OFF MILL TENDER Nonobstructive bowel gas pattern with moderate colonic stool burden. IUD within the pelvis. Narrative 04/03/2024 7:27 AM SLAB OFF MILL TENDER EXAM: DX ABDOMEN 1 VIEW Procedure Note Edith Macias M.D. - 04/03/2024 EXAM: DX ABDOMEN 1 VIEW IMPRESSION: Nonobstructive bowel gas pattern with moderate colonic stool burden. IUDwithin the pelvis. us Juan Carlos WorthingtonB.B.S. IMG DIAGNOSTIC IMAGING PROCEDURES Final Result documented in this encounter Visit Diagnoses Diagnosis Constipation Constipation Constipation documented in this encounter
--- OUTSIDE RECORDS SUMMARY | 2024-04-17 09:56 | XMS_ITS | Encounter Summary ---
Author Organization [facility] Address [address] [place] [address] Care Team Providers Care Medical Esthetician Name Role Phone Unavailable Primary Care Provider Unavailabl e Reason for Referral * Outpatient (Routine) - Closed Specialty Diagnoses / Procedures Referred By Pino brush Referred To Contact Diagnoses Constipation Procedures Anorectal Manometry Juan Carlos Domingo M.B.B.S. [address] [place] [phone] Phone: tel: fax: [facility] Referral ID Status Reason Start Date Expiration Date Visits Re quested Visits Authorized [id number] Closed 02/21/2024 02/20/2025 1 1 NING COACH Reason for Visit * Outpatient (Routine) - Closed Specialty Diagnoses / Procedures Referred By Pino brush Referred To Contact Diagnoses Constipation Procedures Anorectal Manometry Juan Carlos Domingo M.B.B.S. [address] [place] [phone] Phone: tel: fax: [facility] Referral ID Status Reason Start Date Expiration Date Visits Re quested Visits Authorized [id number] Closed 02/21/2024 02/20/2025 1 1 Encounter Details Date Type Department Care Team (Latest Contact Info) Description 04/03/2024 1:50 PM LEARNING COACH - 04/03/2024 11:59 PM LEARNING COACH Hospital Encounter Division of Gastroenterology in [place], [place] [address] [place] [phone] Juan Carlos Domingo M.B.B.S. [address] [place] [address] Constipation Discharge Disposition: Home or Self Care Social History Tobacco Use Types Packs/Day Years Used Date Smoking Tobacco: Never Passive Smoke Exposure: Never Smokeless Tobacco: Never Alcohol Use Standard Drinks/Week Comments Yes 0 (1 standard drink = 0.6 oz pure alcohol) Occasionally I will have one drink - lately 1 per month [facility] Utilities Answer Date Recorded In the past 12 months has th e [email or web address], gas, oil, or water [employer] threatened to shut off services in your [...] your living situation today? I have a [facility] place to live 03/29/2024 Comments Unknown Sex and Gender Information Value Date Recorded Sex Assigned at Female 03/29/2024 8:07 PM LEARNING COACH Legal Sex Female 11:57 AM CDT Gender Identity Female 03/29/2024 8:07 PM LEARNING COACH Sexual Orientation Straight 03/29/2024 8: 07 PM LEARNING COACH documented as of this encounter Medications at [...] (Latest Contact Info) Description 04/17/2024 3:00 PM LEARNING COACH Hospital Encounter Division of Gastroenterology in [place], [place] [address] [place] [address] Juan Carlos Domingo M.B.B.S. [address] [place] [address] documented as of this encounter Procedures Procedure Name Priority Date/Time Associated Diagnosis Comments ANORECTAL MANOMETRY Routine 04/04/2024 9:29 AM CS T Constipation documented in this encounter Results * Anorectal Manometry (04/04/2024 9:29 AM LEARNING COACH) us Juan Carlos TimBGailSGail GI PROCEDURE ORDERABLES Final Result MMODAL NA documented in this encounter Visit Diagnoses Diagnosis Constipation documented in this encounter
--- OUTSIDE RECORDS SUMMARY | 2024-04-17 09:56 | XMS_ITS | Encounter Summary ---
Author Organization [facility] Address [address] [place] [address] Care Team Providers Care Fluxer Name Role Phone Unavailable Primary Care Provider Unavailabl e Reason for Referral * Outpatient (Routine) - Closed Specialty Diagnoses / Procedures Referred By Pino brush Referred To Contact Diagnoses Constipation Procedures NM Gastric Emptying with SB with Colonic Transit Time 48 hr Juan Carlos Domingo M.B.B.S. [address] [place] [phone] Phone: tel: fax: [facility] Referral ID Status Reason Start Date Expiration Date Visits Re quested Visits Authorized [id number] Closed 02/21/2024 02/20/2025 8 8 IAL LOAN OFFICER Reason for Visit * Outpatient (Routine) - Closed Specialty Diagnoses / Procedures Referred By Pino brush Referred To Contact Diagnoses Constipation Procedures NM Gastric Emptying with SB with Colonic Transit Time 48 hr Juan Carlos Domingo M.B.B.S. [address] [place] [phone] Phone: tel: fax: [facility] Referral ID Status Reason Start Date Expiration Date Visits Re quested Visits Authorized [id number] Closed 02/21/2024 02/20/2025 8 8 Encounter Details Date Type Department Care Team (Latest Contact Info) Description 04/04/2024 6:44 AM SPECIAL LOAN OFFICER - 04/04/2024 7:44 AM SPECIAL LOAN OFFICER Hospital Encounter Department of Radiology, [facility], in [place], [place] [address] [place] [address] Juan Carlos Domingo M.B.BGailS. [address] [place] [address] Constipation Discharge Disposition: Home or Self Care Social History Tobacco Use Types Packs/Day Years Used Date Smoking Tobacco: Never Passive Smoke Exposure: Never Smokeless Tobacco: Never Alcohol Use Standard Drinks/Week Comments Yes 0 (1 standard drink = 0.6 oz pure alcohol) Occasionally I will have one drink - lately 1 per month [facility] Utilities Answer Date Recorded In the past 12 months has th e electric, gas, oil, or water company threatened to [...] your living situation today? I have a [facility] place to live 03/29/2024 Comments Unknown Sex and Gender Information Value Date Recorded Sex Assigned at Female 03/29/2024 8:07 PM SPECIAL LOAN OFFICER Legal Sex Female 11:57 AM CDT Gender Identity Female 03/29/2024 8:07 PM SPECIAL LOAN OFFICER Sexual Orientation Straight 03/29/2024 8: 07 PM SPECIAL LOAN OFFICER documented as of this encounter Medications at [...] (Latest Contact Info) Description 04/17/2024 3:00 PM SPECIAL LOAN OFFICER Hospital Encounter Division of Gastroenterology in [place], [place] [address] [place] [address] Juan Carlos Domingo M.B.B.S. [address] [place] [address] documented as of this encounter Procedures Procedure Name Priority Date/Time Associated Diagnosis Comments NM GASTRIC EMPTYING WITH SB WITH COLONIC TRANSIT TIME 48 HR RAD - Routine (most inpatients and all outpatients) 04/07/2024 7:47 AM SPECIAL LOAN OFFICER Constipation documented in this encounter Results * NM Gastric Emptying with SB with Colonic Transit Time 48 hr (04/07/2024 7:47 AM SPECIAL LOAN OFFICER) Anatomical Region Laterality Modality Abdomen, Pelvis, Nuclear Med icine RST LOS, Nuclear Medicine ARZ LOS, Nuclear Medicine FLA LOS, Nuclear Medicine N/A Nuclear Medicine Impressions 04/07/2024 8:36 AM SPECIAL LOAN OFFICER 1. Gastric emptying is within normal limits. 2. Colonic transit is within normal limits. Narrative 04/07/2024 8:36 AM SPECIAL LOAN OFFICER EXAM: NM GASTRIC EMPTYING WITH SB WITH [...] transit is within normal limits. Juan Carlos GuanSGail IMG [place] PROCEDURES Final Result documented in this encounter Visit Diagnoses Diagnosis Constipation documented in this encounter
--- OUTSIDE RECORDS SUMMARY | 2024-04-17 09:56 | XMS_ITS | Encounter Summary ---
Author Organization [facility] Address [address] [place] [address] Phone [email or web address] Care Team Providers Care Team Truck Driver Name Role Phone None, At This Time Primary Care Provider Unavail able Encounter Details Date Type Department Care Team (Late st Contact Info) Description 12/08/2023 Claims Summary [facility] [address] [place] [address] Provider, Claims Summary External, [address] [place] [phone] Social History Tobacco Use Types Packs/Day Years Used Date Smoking Tobacco: Never Smokeless Tobacco: Never Alcohol Use Standard Drinks/Week Comments Not Currently 1 (1 standard drink = 0.6 oz pur e alcohol) Alcohol Use Answer Date Recorded Alcohol Use Status Not Currently 11/05/2023 Comments Unknown Sex and Gender Information Value Date Recorded Sex Assigned at Not on file Legal Sex Female 12:50 PM 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
--- OUTSIDE RECORDS SUMMARY | 2024-04-17 09:56 | XMS_ITS | Encounter Summary ---
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
--- OUTSIDE RECORDS SUMMARY | 2024-04-17 09:56 | XMS_ITS | Encounter Summary ---
Author Organization [facility] Address [address] [place] [address] Care Team Providers Care Traffic Sergeant Name Role Phone Unavailable Primary Care Provider Unavailabl e Reason for Visit * Reason Onset Date Comments Pre-visit Intake 03/30/2024 * Appointment Request (Routine) - Authorized Specialty Diagnoses / Procedures Referred By Contact Referred To Contact Gastroenterology and Hepatology Referral ID Status Reason Start Date Expiration Date V isits Requested Visits Authorized [id number] Authorized 02/21/2024 02/20/2025 1 1 Encounter Details Date Type Department Care Team (Latest Contact Info) Description 03/30/2024 9:30 AM TRANSIT PLANNER Clinical Communication Virtual Review in [place], [place] [address] [place] [address] Pre-visit Intake Social History Tobacco Use Types Packs/Day Years Used Date Smoking Tobacco: Never Passive Smoke Exposure: Never Smokeless Tobacco: Never Tobacco Cessation:Counseling Given: Not Answered Alcohol Use Standard Drinks/Week Comments Yes 0 (1 standard drink = 0.6 oz pure alcohol) Occasionally I will have one drink - lately 1 per month [facility] Utilities Answer Date Recorded In the past 12 months has [employer], gas, oil, or water [employer] threatened to shut off services in your [...] your living situation today? I have a [facility] place to live 03/29/2024 Comments Unknown Sex and Gender Information Value Date Recorded Sex Assigned at Female 03/29/2024 8:07 PM TRANSIT PLANNER Legal Sex Female 11:57 AM CDT Gender Identity Female 03/29/2024 8:07 PM TRANSIT PLANNER Sexual Orientation Straight 03/29/2024 8: 07 PM TRANSIT PLANNER documented as of this encounter Plan of Treatment Upcoming Encounters Date Type Department Care Team (Latest Contact Info) Description 04/17/2024 3:00 PM TRANSIT PLANNER Hospital Encounter Division of Gastroenterology in [place], [place] [address] [place] [address] Juan Carlos Domingo M.B.B.S. [address] [place] [address] documented as of this encounter Visit Diagnoses Not on filedocumented in this encounter
--- OUTSIDE RECORDS SUMMARY | 2024-04-17 09:56 | XMS_ITS | Clinical Summary ---
Author Organization [employer] [facility] Address [place], [place] [address] Care Team Providers Care Tailing Hand Name Role Phone Clinic, [facility] Primary Care Pr ovider Pcp, No Unavailable Unavailable Allergies No known active allergies Medications NAPROXEN 500 MG TAB prn 0 12/23/2006 Active SPRINTEC (28) 0.25 MG-35 MCG TAB take 1 tablet by oral route once daily 0 12/23/2006 Active DARVOCET-N 100 100 MG-650 MG TABIndications:C ervicalgia 1-2 Four times a day as needed for pain 30 0 12/23/2006 Active Active Problems Problem Noted Date Diagnosed Date ACNE 12/23/2006 DYSMENORRHEA 12/23/2006 Encounters Date Type Department Care Team Description 03/24/2024 12:12 PM [facility] - 03/24/2024 7:25 PM [facility] [address] [place] [address] Asad Ferrell PA Sibley, Ted Daniel, MD Deyoung, Ginger Villar, Julianna Albert DO Generalized abdominal [...] drink = 0.6 oz pur e alcohol) Comments No Sex and Gender Information Value Date Recorded Sex Assigned at Not on file Legal Sex Female 5:40 AM [facility] Gender Identity Not on file Sexual Orientation Not on file Obstetrics History Last Filed Vital Signs Vital Sign Reading Time Taken Comments Blood Pressure 93/50 03/24/2024 7:19 PM [facility] Pulse 72 03/24/2024 7:19 PM [facility] Temperature 36.5 C (97.7 F) 03/24/2024 10:39 AM [facility] Respiratory Rate 18 03/24/2024 10:39 AM [facility] Oxygen Saturation 97% 03/24/2024 7:19 PM [facility] Inhaled Oxygen Concentration - - Weight 54.4 kg (120 lb) 03/24/2024 10:39 AM [facility] Height 162.6 cm (5' 4) 03/24/2024 10:39 AM [facility] Body Mass Index 20.6 03/24/2024 10:39 AM [facility] Plan of Treatment Health Maintenance Due Date [...] TV WITH DUPLEX STAT 03/24/2024 6:[address] ABDOMEN PELVIS W STAT 03/24/2024 2 :30 PM [facility] LIPASE STAT 03/24/2024 12:42 PM [facility] URINE POCT STAT 03/24/2024 12:42 PM [facility] UA W/ SEDIMENT EXAM REFLEXED PER CRITERIA STAT 03/24/2024 12:42 PM [facility] HEPATIC FUNCTION PANEL STEVO 03/24/2024 11:28 AM [facility] BASIC METABOLIC PANEL STAT 03/24/2024 11:28 AM [facility] CBC W PLT NO DIFF STAT 03/24/2024 11: 28 AM [facility] BUFFET WAITER/WAITRESS THIN PREP PAP SCREEN IMAGED Routine 02/16/2020 3:30 PM CDT from Last 3 Months or Most Recently Relevant to Health Maintenance Results * US PELVIS COMPLETE TA AND TV WITH DUPLEX (03/24/2024 6:45 PM [facility]) Anatomical Region Laterality Modality Pelvis Ultrasound 03/24/2024 6:45 PM [facility] Impressions 03/24/2024 6:58 PM [facility] 1. IUD noted in appropriate position within the endometrium. No other acute findings. Narrative 03/24/2024 6:58 PM [facility] S[facility]UP For Patients: As a result of the Century Cures Act, medical imaging exams and procedure reports are released immediately into your electronic medical record. You may view this report before your referring provider. If you have questions, please contact your health care provider. EXAM: US PELVIS COMPLETE TA AND TV WITH DUPLEX LOCATION: [facility]AG[facility] DATE: 03/24/2024 INDICATION: Pain/tenderness COMPARISON: [...] COMPLETE TA AND TV WITH DUPLEX LOCATION: [facility] DATE: 03/24/2024 INDICATION: Pain/tenderness COMPARISON: [...] position within the endometrium. No otheracute findings. us Asad bryan Result * CT Abdomen Pelvis w IV (Oral Contrast = NO) (03/24/2024 2:30 PM [facility]) Anatomical Region Laterality Modality Abdomen, Pelvis, AORTA, LIVER, SPLEEN Computed Tomography 03/24/2024 2:30 PM [facility] Impressions 03/24/2024 2:40 PM [facility] 1. No acute findings in the abdomen and pelvis. Narrative 03/24/2024 2:40 PM [facility] For Patients: As a result of the Cures Act, medical imaging exams and procedure reports are released immediately into your electronic medical record. You may view this report before your referring provider. If you have questions, please contact your health care provider. EXAM: CT ABDOMEN PELVIS W LOCATION: [facility] MEDICAL [facility]AG[facility] DATE: 03/24/2024 INDICATION: Abdominal or [...] provider. EXAM: CT ABDOMEN PELVIS W LOCATION: [facility] DATE: 03/24/2024 INDICATION: Abdominal or [...] the abdomen and pelvis. Asad CHESTER CT Fin al Result * URINE POCT (03/24/2024 12:42 PM [facility]) ,URIN E Negative Negative 03/24/2024 1:48 PM [facility] Urine URINE SPECIMEN / Unknown Non-Blood / Unknown 03/24/2024 12:42 PM [facility] 03/24/2024 12:51 PM [facility] Eleazar CHESTER URINE Final Re sult [facility] SENDOUT [place] ZIP [address] [place] [address] * (ABNORMAL) UA W/ SEDIMENT EXAM REFLEXED PER CRITERIA (03/24/2024 12:42 PM [facility]) COLOR Yellow Yellow Color 03/24/2024 1:04 PM [facility] CLARITY Clear Clear Clarity 03/24/2024 1:04 PM [facility] SPECIFIC GRAVITY,URINE >=1.030(A) 1.010, 1.015, 1.020, 1.025 03/24/2024 1:04 PM [facility] PH,URINE 8.5 6.0, 7.0, 8.0, 5.5, 6.5, 7.5, 8.5 03/24/2024 1:04 PM [facility] UROBILINOGEN, QUALITATIVE Normal Normal EU/dl 03/24/2024 1:04 PM [facility] PROTEIN, URINE Negative Negative mg/dL 03/24/2024 1:04 PM [facility] GLUCOSE, URINE Negative Negative mg/dL 03/24/2024 1:04 PM [facility] KETONES,URINE Negative Negative mg/dL 03/24/2024 1:04 PM [facility] BILIRUBIN,URI NE Negative Negative 03/24/2024 1:04 PM [facility] OCCULT BLOOD,URINE Negative Negative 03/24/2024 1:04 PM [facility] NITRITE Negative Negative 03/24/2024 1:04 PM [facility] LEUKOCYTE ESTERASE Negative Negative 03/24/2024 1:04 PM [facility] Urine URINE SPECIMEN / Unknown Non-Blood / Unknown 03/24/2024 12:42 PM [facility] 03/24/2024 12:51 PM [facility] Eleazar Mei PA URINE Final Re sult Performing Organization Address [facility]/ZIP Co de Phone Number [facility] SENDOUT [place]NAL ZIP [phone] [place] [address] * LIPASE (03/24/2024 12:42 PM [facility]) Pathologist [facility] LIPASE 39.1 13.0 - 60.0 IU/L 03/24/2024 1:20 PM [facility] Blood BLOOD SPECIMEN / Unknown Non-Lab Venipuncture / Unknown 03/24/2024 12:42 PM [facility] 03/24/2024 12:55 PM [facility] Asad Ferrell PA CHEMISTRY Fin al Result Performing Organization Address [facility]/ZIP Co de Phone Number [facility] SENDOUT INTERNAL ZIP [phone] [place] [phone] * CBC W PLT NO DIFF (03/24/2024 11:28 AM [facility]) WHITE BLOOD COUNT 5.8 4.5 - 11.0 thou/cu mm 03/24/2024 11:39 AM [facility] RED BLOOD COUNT 4.45 4.00 - 5.20 mil/cu mm 03/24/2024 11:39 AM [facility] HEMOGLOBIN 14.1 12.0 - 16.0 g/dL 03/24/2024 11:39 AM [facility] HEMATOCRIT 41.0 33.0 - 51.0 % 03/24/2024 11:39 AM [facility] MCV 92 80 - 100 fL 03/24/2024 11:39 AM [facility] MCH 31.7 26.0 - 34.0 pg 03/24/2024 11:39 AM [facility] MCHC 34.4 32.0 - 36.0 g/dL 03/24/2024 11:39 AM [facility] RDW 12.7 11.5 - 15.5 % 03/24/2024 11:39 AM [facility] PLATELET COUNT 147 140 - 440 thou/cu mm 03/24/2024 11:39 AM [facility] MPV 9.3 6.5 - 11.0 fL 03/24/2024 11:39 AM [facility] NRBC 0.0 % 03/24/2024 11:39 AM [facility] ABS NRBC 0.0 thou /cu mm 03/24/2024 11:39 AM [facility] Blood BLOOD SPECIMEN / Unknown Non-Lab Venipuncture / Unknown 03/24/2024 11:28 AM [facility] 03/24/2024 11:33 AM [facility] Eleazar CHESTER HEMATOLOGY Final Re sult [facility] SENDOUT INTERNAL ZIP [phone] [place] [address] * HEPATIC FUNCTION PANEL (03/24/2024 11:28 AM [facility]) ALBUMIN 4.8 4.0 - 4.9 g/dL 03/24/2024 12:27 PM [facility] PROTEIN,TOTAL 7.6 6.0 - 8.0 g/dL 03/24/2024 12:27 PM [facility] BILIRUBIN,TOTAL 0.6 0.0 - 1.2 mg/dL 03/24/2024 12:27 PM [facility] BILIRUBIN,DIRECT 0.2 0.0 - 0.2 mg/dL 03/24/2024 12:27 PM [facility] BILIRUBIN,INDIRE CT 0.4 0.2 - 0.8 mg/dL 03/24/2024 12:27 PM [facility] ALK PHOSPHATASE 53 35 - 104 IU/L 03/24/2024 12:27 PM [facility] ALT (SGPT) 14 10 - 35 IU/L 03/24/2024 12:27 PM [facility] AST (SGOT) 22 10 - 35 IU/L 03/24/2024 12:27 PM [facility] Blood BLOOD SPECIMEN / Unknown Non-Lab Venipuncture / Unknown 03/24/2024 11:28 AM [facility] 03/24/2024 11:33 AM [facility] us Asad CHESTER CHEMISTRY Fin al Result [facility] SENDOUT INTERNAL ZIP [phone] [place] [address] * (ABNORMAL) BASIC METABOLIC PANEL (03/24/2024 11:28 AM [facility]) SODIUM 138 136 - 145 mmol/L 03/24/2024 12:03 PM [facility] POTASSIUM 4.5 3.5 - 5.1 mmol/L 03/24/2024 12:03 PM [facility] CHLORIDE 102 98 - 107 mmol/L 03/24/2024 12:03 PM [facility] CO2,TOTAL 27 22 - 29 mmol/L 03/24/2024 12:03 PM [facility] ANION GAP 9 5 - 18 03/24/2024 12:03 PM [facility] GLUCOSE 91 70 - 99 mg/dL 03/24/2024 12:03 PM [facility] CALCIUM 9.5 8.8 - 10.4 mg/dL 03/24/2024 12:03 PM [facility] Comment: Reference ranges for this test were updated on 03/14/2024 to reflect our healthy population more accurately. Reference range changes are not retroactively applied to results, but previous results using the same methodology can be interpreted in the context of the new reference range. BUN 24(H) 6 - 20 mg/dL 03/24/2024 12:03 PM [facility] CREATININE 0.79 0.50 - 0.90 mg/dL 03/24/2024 12:03 PM [facility] BUN/CREAT RATIO 30(H) 10 - 20 12:03 PM [facility] eGFR >90 >90 mL/min/1.7 3m2 03/24/2024 12:03 PM [facility] Comment:As of 2021, eG FR is calculated by the CKD-EPI creatinine equation without race adjustment. eGFR can be influenced by muscle mass, exercise, and diet. The reported eGFR is an estimation only and is only applicable if the renal function is stable. Blood BLOOD SPECIMEN / Unknown Non-Lab Venipuncture / Unknown 03/24/2024 11:28 AM [facility] 03/24/2024 11:33 AM [facility] Eleazar CHESTER CHEMISTRY Final Re sult [facility] SENDOUT INTERNAL ZIP [phone] [place] [address] * BUFFET WAITER/WAITRESS THIN PREP PAP SCREEN IMAGED (02/16/2020 3:30 PM CDT) Case Report Gynecologic Cytology Report Case: [id number] Authorizing Provider: Kori Quiroz PA-C Collected: 02/16/2020 1530 Ordering Location: [facility] Received: 02/20/2020 09 First Screen: Monica Triplett Specimen: BUFFET WAITER/WAITRESS ThinPrep Vial Screening, Cervical/Vaginal 02/28/2020 2:15 PM [facility] INTERPRETATION/ RESULT NEGATIVE FOR INTRAEPITHELIAL LESION OR MALIGNANCY (NIL) (none) 02/28/2020 2:15 PM CDT [facility] IMEN ADEQUACY Satisfactory for evaluation Endocervical component present 02/28/2020 2:15 PM CDT [facility] HPV REQUEST HPV not requested 2019 2:15 PM CDT [facility] Last Pap Date 01/26/2020 02/28/2020 2:15 PM CDT [facility] Last Pap Result 0 2:15 PM CDT [facility] Comment:Unsatisfactory pap, HPV neg Menstrual Status 02/28/2020 2:15 PM CDT [facility] Additional Information 02/28/2020 2:15 PM CDT [facility] Comment: Interpreted at [facility] - [address], [place] [address] Automated Review Successful 02/28/2020 2:15 PM CDT [facility] Comment:Specimen processed s uccessfully by automated wet pan operator device, ThinPrep Imaging System, [employer] Note The pap test is a [...] and malignant lesions. 02/28/2020 2:15 PM CDT [facility] Other (Cervical/Vagina l) 02/16/2020 3:30 PM CDT 02/20/2020 9:13 AM CDT august Gabriella PASCUAL PATHOLOGY/CYTOLOGY Final R esult [facility] [address] [place] [address], from Last 3 Months or Most Recently Relevant to Health Maintenance Insurance [employer] [place] [id number] Care Teams Tailing Hand Relationship Specialty Start Date End Date Clinic, [address] [address] PCP - General 03/24/24 Pcp, No . 03/24/24
--- OUTSIDE RECORDS SUMMARY | 2024-04-17 09:56 | XMS_ITS | Encounter Summary ---
Author Organization [facility] Address [address] [place] [address] Care Team Providers Care Weatherization Coordinator Name Role Phone Unavailable Primary Care Provider Unavailabl e Reason for Referral * Physical Therapy (Routine) - Authorized Specialty Diagnoses / Procedures Referred By Contac t Referred To Contact Diagnoses Constipation Procedures PT or OT eval and treat (first available) Juan Carlos Domingo M.B.B.S. [address] [place] [phone] Phone: tel: fax: [facility] Referral ID Status Reason Start Date Expiration Date V isits Requested Visits Authorized [id number] Authorized 04/04/2024 04/04/2025 1 1 PUSHER * Outpatient (Routine) - Authorized Specialty Diagnoses / Procedures Referred By Contac t Referred To Contact Diagnoses Constipation Procedures Colonoscopy Juan Carlos Dominog M.BGailB.S. [address] [place] [phone] Phone: tel: fax: [facility] Referral ID Status Reason Start Date Expiration Date V isits Requested Visits Authorized [id number] Authorized 04/03/2024 04/03/2025 1 1 PUSHER Reason for Visit * Reason Comments Constipation Slow Transit Abdominal Pain * Appointment Request (Routine) - Closed Specialty Diagnoses / Procedures Referred By Contact Referred To Contact Gastroenterology and Hepatology Diagnoses Constipation Slow Transit Abdominal Pain Referral ID Status Reason Start Date Expiration Date Visits Re quested Visits Authorized [id number] Closed 02/21/2024 02/20/2025 1 1 Encounter Details Date Type Department Care Team (Latest Contact Info) Description 04/03/2024 8:00 AM K[facility]N P[facility]HER Comprehensive Visit Division of Gastroenterology in [place], [place] [address] [place] [address] Juan Carlos Domingo M.B.BGailS. [address] [place] [phone] Constipation (Primary Dx) Social History Tobacco Use Types Packs/Day Years Used Date Smoking Tobacco: Never Passive Smoke Exposure: Never Smokeless Tobacco: Never Alcohol Use Standard Drinks/Week Comments Yes 0 (1 standard drink = 0.6 oz pure alcohol) Occasionally I will have one drink - lately 1 per month [facility] 28msecities Answer Date Recorded In the past 12 months has th e [employer], gas, oil, or water [employer] threatened to shut off services in your [...] your living situation today? I have a [facility] place to live 03/29/2024 Comments Unknown Sex and Gender Information Value Date Recorded Sex Assigned at Female 03/29/2024 8:07 PM KILN PUSHER Legal Sex Female 11:57 AM CDT Gender Identity Female 03/29/2024 8:07 PM K[facility]N P[facility]HER Sexual Orientation Straight 03/29/2024 8: 07 PM K[facility]N PUSHER documented as of this encounter Last Filed Vital Signs Vital Sign Reading Time Taken Comments Blood Pressure 110/70 04/03/2024 8:03 AM KILN PUSHER Pulse 65 04/03/2024 8:03 AM KILN P[facility]HER Temperature - - Respiratory Rate - - Oxygen Saturation - - Inhaled Oxygen Concentration - - Weight 55.1 kg (121 lb 7.6 oz) 04/03/2024 8:03 A M KILN PUSHER Height 164.5 cm (5' 4.76) 04/03/2024 8:03 AM CS T Body Mass Index 20.36 04/03/2024 8:03 AM KILN PUSHER documented in this encounter Plan of Treatment Upcoming Encounters Date Type Department Care Team (Latest Contact Info) Description 04/17/2024 3:00 PM K[facility]N PUSHER Hospital Encounter Division of Gastroenterology in [place], [place] [address] [place] [address] Juan Carlos Domingo M.B.B.S. [address] [place] [address] Scheduled Orders Name Type Priority Associated Diagnoses Orde r Schedule Colonoscopy GI Routine Constipation Expected: 04/03/2024, Expires: 07/04/2025 documented as of this encounter Results * Celiac Disease Comprehensive Helen (04/03/2024 9:50 AM KILN PUSHER) HLA-DQA1 Locus Molecular 01, 01:02 Not Applicable 04/05/2024 2:48 PM KILN PUSHER [facility] HLA-DQB1 Locus Molecular 05, 06:02 Not Applicable 04/05/2024 2:48 PM KILN PUSHER [facility]BB8 Comment: DQ Serologic Equivalent: 5, 6 Celiac Gene Pairs Present? No 04/05/2024 2:48 PM KILN PUSHER DBB8 Comment: Method: Molecular typing of HLA [...] instructions. Its performance characteristics were determined by [facility] in a manner consistent with CLIA requirements. This test has not been cleared or approved by the U.S. Food and Drug Administration. CLIA: [id number] CLIA Skein Yarn Dyer Helper: ALTAGRACIA ZARATE,Ph.D. A portion of the testing process was performed at [facility] site [id number] Immunoglobulin A (IgA), S 213 61 - 356 mg/dL 04/03/2024 6:12 PM [facility] Celiac Disease Interpretation See Comment: Permissive genes absent and negative serology. Celiac disease extremely unlikely. 04/05/2024 10:53 PM KILN PUSHER [facility] Blood (Blood, Venous) 04/03/2024 9:50 AM KILN PUSHER 04/03/2024 10:21 AM KILN PUSHER Narrative [facility] - 04/05/2024 10:53 PM KILN PUSHER Specimen Information: Specimen ID: [id number] Specimen Type: Blood Specimen Collection Start Date: 04/03/2024 9:50 AM Specimen Received Date: 04/03/2024 10:21 AM Specimen ID: [id number] Specimen Type: Blood Specimen Collection Start Date: 04/03/2024 9:50 AM Specimen Received Date: 04/03/2024 12:40 PM Specimen ID: [id number] Specimen Type: Blood Specimen Collection Start Date: 04/03/2024 9:50 AM Specimen Received Date: 04/03/2024 5:58 PM Juan Carlos Camacho LAB BLOOD NON ADD-ON Fi nal Result [facility] [address] [place] [address] DBB8 [facility] [address] [place] [address] [facility] [address] [place] [address] [facility] [address] [place] [address] [place] [address] * Thyroid Function Helen (04/03/2024 9:50 AM KILN PUSHER) TSH, Sensitive 1.4 0.3 - 4.2 mIU/L 04/03/2024 10:57 AM K[facility]N PUSHER [facility] Blood (Blood, Venous) 04/03/2024 9:50 AM KILN PUSHER 04/03/2024 10:30 AM KILN PUSHER Juan Carlos Camacho LAB BLOOD ADD-ON Final Result Performing Organization Address City/[facility]/ZIP Co de Phone Number [facility] [address] [place] [address], [facility] DTL [facility] [place] [facility] [place] [address] [place] [address] documented in this encounter Visit Diagnoses Diagnosis Constipation- Primary Constipation documented in this encounter
--- OUTSIDE RECORDS SUMMARY | 2024-04-17 09:56 | XMS_ITS | Encounter Summary ---
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
--- OUTSIDE RECORDS SUMMARY | 2024-04-17 09:56 | XMS_ITS | Encounter Summary ---
Author Organization [facility] Address [address] [place] [address] Care Team Providers Care Underground Heavy Equipment Operator Name Role Phone Unavailable Primary Care Provider Unavailabl e Encounter Details Date Type Department Care Team (Latest Contact Info) Description 04/03/2024 9:35 AM CHEF DE PARTIE - 04/03/2024 1:49 PM CHEF DE PARTIE Hospital Encounter Department of Laboratory Medicine and Pathology, [facility] in [place], [place] [address] [place] [address] Juan Carlos Domingo M.B.B.S. [address] [place] [address] Constipation Discharge Disposition: Home or Self Care Social History Tobacco Use Types Packs/Day Years Used Date Smoking Tobacco: Never Passive Smoke Exposure: Never Smokeless Tobacco: Never Alcohol Use Standard Drinks/Week Comments Yes 0 (1 standard drink = 0.6 oz pure alcohol) Occasionally I will have one drink - lately 1 per month [facility] Utilities Answer Date Recorded In the past 12 months has [employer], [employer], or water [employer] threatened to shut off services in your [...] your living situation today? I have a [facility] place to live 03/29/2024 Comments Unknown Sex and Gender Information Value Date Recorded Sex Assigned at Female 03/29/2024 8:07 PM CHEF DE PARTIE Legal Sex Female 11:57 AM CDT Gender Identity Female 03/29/2024 8:07 PM CHEF DE PARTIE Sexual Orientation Straight 03/29/2024 8: 07 PM CHEF DE PARTIE documented as of this encounter Medications at [...] (Latest Contact Info) Description 04/17/2024 3:00 PM CHEF DE PARTIE Hospital Encounter Division of Gastroenterology in [place], [place] [address] [place] [address] Juan Carlos Domingo M.B.B.S. [address] [place] [address] documented as of this encounter Procedures Procedure Name Priority Date/Time Associated Diagnosis Comments THYROID FUNCTION CASCADE, S Routine 04/03/2024 9:50 AM CHEF DE PARTIE Constipation CELIAC DISEASE COMPREHENSIVE CASCADE Routine 04/03/2024 9:50 AM CHEF DE PARTIE Constipation TISSUE TRANSGLUTAMINASE (TTG) AB, IGA, S Routine 04/03/2024 9:50 AM CHEF DE PARTIE documented in this encounter Results * tTG (Tissue Transglutaminase), Antibody, IgA (04/03/2024 9:50 AM CHEF DE PARTIE) Tissue Transglutaminase Ab, IgA, S <1.2 <4.0 (Negative ) U/mL 04/04/2024 10:25 AM CHEF DE PARTIE [facility] Blood 04/03/2024 9:50 AM CHEF DE PARTIE 04/03/2024 6:13 PM CHEF DE PARTIE us Juan Carlos TimBGailS. LAB BLOOD ADD-ON Final Result [facility] [address] [place] [address] Formerly named [facility] [address] [place] [address] * Celiac Disease Comprehensive [place] (04/03/2024 9:50 AM CHEF DE PARTIE) HLA-DQA1 Locus Molecular 01, 01:02 Not Applicable 04/05/2024 2:48 PM CHEF DE PARTIE [facility] HLA-DQB1 Locus Molecular 05, 06:02 Not Applicable 04/05/2024 2:48 PM CHEF DE PARTIE [facility] Comment: DQ Serologic Equivalent: 5, 6 Celiac Gene Pairs Present? No 04/05/2024 2:48 PM CHEF DE PARTIE [facility] Comment: Method: Molecular typing of HLA antigens performed using reverse SSOP and/or sequencing methods, reported as serological equivalents and low to intermediate resolution molecular values. For convenience, when not defined in the WHO Nomenclature a laboratory defined serologic equivalent has been provided. Based on the catalog of common, intermediate, and well-documented alleles in the world population(CIWD 3.0 Hortensia SHARP et.al, HLA. 2020:511-531), certain intermediate or common alleles in some ethnicities may not be resolved. Kindly contact laboratory if ethnic specific resolution is required. This test has been modified from the manufacturers instructions. Its performance characteristics were determined by [facility] in a manner consistent with CLIA requirements. This test has not been cleared or approved by the U.S. Food and Drug Administration. CLIA: [id number] CLIA Roll Scale Worker: ALTAGRACIA ZARATE,Ph.D. A portion of the testing process was performed at [facility] site 286172 Immunoglobulin A (IgA), S 213 61 - 356 mg/dL 04/03/2024 6:12 PM [facility] Celiac Disease Interpretation See Comment: Permissive genes absent and negative serology. Celiac disease extremely unlikely. 04/05/2024 10:53 PM [facility] Blood (Blood, Venous) 04/03/2024 9:50 AM CHEF DE PARTIE 04/03/2024 10:21 AM CHEF DE PARTIE Narrative [facility] - 04/05/2024 10:53 PM CHEF DE PARTIE Specimen Information: Specimen ID: [id number] Specimen Type: Blood Specimen Collection Start Date: 04/03/2024 9:50 AM Specimen Received Date: 04/03/2024 10:21 AM Specimen ID: [id number] Specimen Type: Blood Specimen Collection Start Date: 04/03/2024 9:50 AM Specimen Received Date: 04/03/2024 12:40 PM Specimen ID: [id number] Specimen Type: Blood Specimen Collection Start Date: 04/03/2024 9:50 AM Specimen Received Date: 04/03/2024 5:58 PM us Juan Carlos Camacho LAB BLOOD NON ADD-ON Fi nal Result [facility] [address] [place] [address] [facility] [address] [place] [address] [facility] [address] [place] [address] [facility] [address] [place] [address] [place] [address] * Thyroid Function [place] (04/03/2024 9:50 AM CHEF DE PARTIE) TSH, Sensitive 1.4 0.3 - 4.2 mIU/L 04/03/2024 10:57 AM [facility]IE [facility] Blood (Blood, Venous) 04/03/2024 9:50 AM CHEF DE PARTIE 04/03/2024 10:30 AM CHEF DE PARTIE us Juan Carlos Camacho LAB BLOOD ADD-ON Final Result [facility] [address] [place] [address], [place] [facility] [address] [place] [address] documented in this encounter Visit Diagnoses Diagnosis Constipation documented in this encounter
--- OUTSIDE RECORDS SUMMARY | 2024-04-17 09:56 | XMS_ITS | Encounter Summary ---
Author Organization [facility] Address [address] [place] [address] Care Team Providers Care Manager Market Name Role Phone Unavailable Primary Care Provider Unavailabl e Reason for Visit * Outpatient (Routine) - Closed Specialty Diagnoses / Procedures Referred By Pino t Referred To Contact Diagnoses Constipation Procedures NM Gastric Emptying with SB with Colonic Transit Time 48 hr Juan Carlos Domingo M.B.B.S. [address] [place] [phone] Phone: tel: fax: [facility] Referral ID Status Reason Start Date Expiration Date Visits Re quested Visits Authorized [id number] Closed 02/21/2024 02/20/2025 8 8 Encounter Details Date Type Department Care Team (Latest Contact Info) Description 04/04/2024 9:05 AM [facility] - 04/04/2024 10:07 AM [facility] Hospital Encounter Department of Radiology, [facility], in [place], [place] [address] [place] [address] Juan Carlos Domingo M.B.B.S. [address] [place] [phone] Discharge Disposition: Home or Self Care Social History Tobacco Use Types Packs/Day Years Used Date Smoking Tobacco: Never Passive Smoke Exposure: Never Smokeless Tobacco: Never Alcohol Use Standard Drinks/Week Comments Yes 0 (1 standard drink = 0.6 oz pure alcohol) Occasionally I will have one drink - lately [address] [facility] Utilities Answer Date Recorded In the past 12 months has [facility] [employer], gas, oil, or water [employer] threatened to shut off services in your [...] your living situation today? 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 [address] [place] [address] documented as of this encounter Procedures Procedure Name Priority Date/Time Associated Diagnosis Comments NM GASTRIC EMPTYING WITH SB WITH COLONIC TRANSIT TIME 48 HR RAD - Routine (most inpatients and all outpatients) 04/07/2024 7:47 AM COMBINED RAIL OPERATOR Constipation documented in this encounter Results * NM Gastric Emptying with SB with Colonic Transit Time 48 hr (04/07/2024 7:47 AM COMBINED RAIL OPERATOR) Anatomical Region Laterality Modality Abdomen, Pelvis, Nuclear Med icine RST LOS, Nuclear Medicine ARZ LOS, Nuclear Medicine FLA LOS, Nuclear Medicine N/A Nuclear Medicine Impressions 04/07/2024 8:36 AM COMBINED RAIL OPERATOR 1. Gastric emptying is within normal limits. 2. Colonic transit is within normal limits. Narrative 04/07/2024 8:36 AM COMBINED RAIL OPERATOR EXAM: NM GASTRIC EMPTYING WITH SB [...]
== END 2024-04-17 09:53 | disposition home or self-care (01) ==
PROVIDERS: PCP Internal Medicine; Visit Provider Obstetrics & Gynecology
DX: Z13.220 Encounter for screening for lipoid disorders (principal)
CPT/HCPCS: 80061; 87624; 87625; 88141; 88142

== ENCOUNTER 2024-04-18 09:27 | Outpatient (CLI) | payer OTHER, SELFPAY | END 2024-04-18 09:28 | disposition home or self-care (01) | LOC: NFLDREF 04-20 11:49 | PROVIDERS: PCP Internal Medicine; Referring Provider Internal Medicine; Visit Provider Obstetrics & Gynecology | DX: R10.2 Pelvic and perineal pain (principal) | CPT/HCPCS: 87086 ==

== ENCOUNTER 2025-03-09 07:18 | Outpatient (CLI) | payer OTHER, SELFPAY ==
--- NOTE | 2025-03-09 07:15 | CRLHL7_ITS ---
For Patients: As a result of the Century Cures Act, medical imaging exams and procedure reports are released immediately into your electronic medical record. You may view this report before your referring provider. If you have questions, please contact your health care provider. CLINICAL HISTORY: Pelvic Pain / Dyspareunia COMPARISON: 03/21/2024 TECHNIQUE: 2D martin-scale ultrasound. In addition, color Doppler and spectral Doppler analysis was performed of the pelvis using a transabdominal and transvaginal approach. Transvaginal imaging performed to better visualize the endometrial stripe and ovaries. FINDINGS: The myometrium has a normal uniform echotexture. The uterus measures 6.7 x 4.2 x 5.2 cm. The endometrial lining appears normal and measures 5.8 mm in thickness. The right ovary measures 2.7 x 1.0 x 2.4 cm in size and the left ovary measures 3.6 x 1.8 x 2.1 cm. The ovaries demonstrate normal arterial and venous blood flow on color Doppler and spectral Doppler analysis. Prominent adnexal vessels are present bilaterally. Simple cyst left ovary measures 2.0 x 1.3 x 1.8 cm. IMPRESSION: Suggestion of pelvic congestion syndrome. Incidental simple left ovarian cyst measures 2 cm. Dictated by Eleazar Cardenas MD @ 03/09/2025 12:17:48 PM (Electronically Signed)
== END 2025-03-09 07:19 | disposition home or self-care (01) ==
PROVIDERS: PCP Internal Medicine; Visit Provider Physician Assistant
DX: R10.20 Pelvic and perineal pain unspecified side (principal); N83.292 Other ovarian cyst, left side; N94.10 Unspecified dyspareunia
CPT/HCPCS: 76830; 76856; 93976

== ENCOUNTER 2025-04-23 09:50 | Outpatient (CLI) | payer OTHER, SELFPAY ==
[2025-04-25 21:07] LABS: HPV Source Cervical
[2025-04-26 17:18] LABS: Pap Test Digital Imaging Done
== END 2025-04-23 09:51 | disposition home or self-care (01) ==
PROVIDERS: PCP Internal Medicine; Visit Provider Obstetrics & Gynecology
DX: Z12.4 Encounter for screening for malignant neoplasm of cervix (principal)
CPT/HCPCS: 87624; 87625; 88141; 88142; 88175